=== PATIENT | male | born 1930 | race Caucasian/White ===

== ENCOUNTER 2017-06-01 15:59 | Inpatient (IN) | payer MEDICARE, OTHER ==
[~2017-06-01] VITALS: Ht 175.3 cm; Wt 69.7 kg
--- NOTE | ~2017-06-01 | ENPV ---
Vascular Upper Extremities Veins Procedure Demographics Patient Name BRY MACARIO Date of Study 06/08/2017 Patient Number [id number] Gender Male Date of 1930 Age 87 Visit Number [id number] Height Accession Number [id number] Weight Room Number G6203 BSA BMI Referring Jeraldkenji Negrete Shaheen Rivas MD Physician MD Physician Soy hBat MD Physician Ordering Physician Surveillance Monitor Store Sales Consultant Honorio Markham, T Conclusions Summary Technically limited exam secondary to arm positioning and lines/dressings. No evidence of deep vein thrombosis in the left distal subclavian vein, axillary vein, brachial vein, radial veins and ulnar veins. No evidence of superficial thrombus in the left cephalic vein and the basilic vein in the forearm. The left innominate vein and proximal subclavian vein were not imaged secondary to lines and dressings. The left upper arm basilic vein was not visualized. Cannot rule out deep vein or superficial thrombus in these unimaged veins. Procedure Type of Study: Veins:Upper Extremities Veins, Upper Extremity Left. Indications for Study:Unilateral pain and edema. Additional Indications:Left upper extremity pain/edema Appropriate Use Criteria:9 Patient Status:Routine. Study Location:Imaging Center. Technical Quality:Limited visualization due to patient immobility. Velocities are measured in cm/s ; Diameters are measured in cm Right UE Vein Measurements 2D and Doppler Measurements + + + + +--------+ + !Location !Visualized !Compressibility !Thrombosis !Signal !Reflux ! + + + + +--------+ + !SCV !Yes ! !None !Phasic !No ! + + + + +--------+ + Left UE Vein Measurements 2D and Doppler Measurements + + + + +--------+--------+ !Location !Visualized !Compressibility !Thrombosis !Signal !Reflux ! + + + + +--------+--------+ !IJV !Yes !Yes !None !Phasic !No ! + + + + +--------+--------+ !SCV !Yes ! !None !Phasic !No ! + + + + +--------+--------+ !Innominate !No ! ! ! ! ! + + + + +--------+--------+ !Axillary !Yes !Yes !None !Phasic !No ! + + + + +--------+--------+ !Brachial !Yes !Yes !None !Phasic !No ! + + + + +--------+--------+ !Radial !Yes !Yes !None !Phasic !No ! + + + + +--------+--------+ !Ulnar !Yes !Yes !None !Phasic !No ! + + + + +--------+--------+ !Basilic !Yes !Yes !None !Phasic !No ! + + + + +--------+--------+ !Cephalic !Yes !Yes !None !Phasic !No ! + + + + +--------+--------+ Signature dtt: BOUBACAR GAVIN dtkarina: 06/08/17 1720 Physician Self Edit
--- NOTE | ~2017-06-01 | OR ---
PATIENT'S NAME: BRY MACARIO [facility] AGE: 87 Y [address] ROOM: [place] [address] LOCATION: [facility] ADMIT DATE: 06/01/2017 OR/Procedure Report DISCHARGE DATE: FAMILY PHYSICIAN: PHYSICIAN, UNKNOWN ATTENDING PHYSICIAN: Penelope Vides SURGEON: Penelope Vides MD PRODUCTION TROUBLESHOOTER: Edwardo Summers CST. DATE OF PROCEDURE: 06/04/2017 PREOPERATIVE DIAGNOSIS: Intracerebral and intraventricular hemorrhage. POSTOPERATIVE DIAGNOSIS: Intraventricular and intracerebral hemorrhage. PROCEDURE PERFORMED: Placement of left-sided ventriculostomy for treatment of intraventricular hemorrhage and intracranial pressure. ANESTHESIA: General. ANESTHESIA PROVIDER: Harshad Johnson MD. HISTORY: The patient is an 87-year-old male who suffered a spontaneous intracerebral hemorrhage with extension into the ventricles. On examination, the patient was doing fairly well considering his age and the size of the hemorrhage. We treated him with mannitol a couple of times; however, he was becoming increasingly drowsy and not responding as well to mannitol. I discussed treatment options with the patient's family including placement of a ventriculostomy and they were agreeable to the same. With their consent, the patient was brought down to the operating room for ventriculostomy. PROCEDURE IN DETAIL: In the operating room, the patient was placed in a supine position. Anesthesia was induced. The hair on the left side of his head was clipped. The whole area was prepped and draped in a sterile fashion. The ventriculostomy site was marked out at 12.5 cm behind the left mid pupillary line. Local anesthesia was infiltrated. The incision was opened with a #10 blade and self-retaining retractor was placed. Twist drill was used to drill a hole through the skull. The dura was coagulated. The trocar was used to make a tunnel under the scalp and brought out of the ventriculostomy entry point and the catheter was fed through the trocar and brought out as well. The catheter was then inserted into the brain. CSF was accessed at first try. He was blood tinged CSF as expected given the patient's intraventricular hemorrhage. The catheter was then secured to the scalp. The catheter entry PATIENT'S NAME: BRY MACARIO [facility] AGE: 87 Y [address] ROOM: [place] [id number] LOCATION: [facility] ADMIT DATE: 06/01/2017 OR/Procedure Report DISCHARGE DATE: FAMILY PHYSICIAN: PHYSICIAN, UNKNOWN ATTENDING PHYSICIAN: Penelope Vides point was closed with sutures. A sterile dressing was applied. The patient tolerated the procedure without any apparent intraoperative complications. He was extubated after the procedure and taken back to the recovery room to complete his recovery. I was present during the entire procedure and performed every aspect of it assisted by operating room nurses. The patient remained stable throughout. I expect him to benefit from this procedure. MD VIRI LEWIS/tayl /[id number] d: 06/10/17 1130 t: 06/10/17 1820, OPERATIVE SUMMARY
--- NOTE | ~2017-06-01 | HP ---
PATIENT'S NAME: DALE MACARIO [facility] AGE: 87 Y [address] ROOM: [place] [address] LOCATION: [facility] ADMIT DATE: 06/01/2017 History & Physical DISCHARGE DATE: FAMILY PHYSICIAN: Physician, Unknown ATTENDING PHYSICIAN: Benjamín Kim DATE OF SERVICE: 06/01/2017 PATIENT IDENTIFICATION: Dale Macario is an 87-year-old gentleman referred by Dr. Carrie Perez. REASON FOR REFERRAL: Intracerebral hemorrhage. PRESENTING COMPLAINT: Left-sided weakness. HISTORY OF PRESENT ILLNESS: The history is obtained in part from the patient's referral notes as well as from patient himself. According to the notes, the patient was visiting his at the intermediate when at about 1:30 p.m. he developed an abrupt onset of left leg weakness and was leaning to the left side. A stroke alert was called and the patient was taken to [facility] in [place] ER for evaluation. There is no history of head injury preceding the weakness. The patient was evaluated in the ER and a head CT scan was performed. A right intracerebral and intraventricular hemorrhage was seen. I was therefore consulted to see the patient. PAST MEDICAL HISTORY: Significant for diabetes. The patient has also had previous heart bypass surgery as well as pacemaker placement. 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 Other medical problems include bowel obstruction, hypercholesterolemia, a previous myocardial infarction. Hypertension. SOCIAL HISTORY: The patient's lives in a intermediate. He has a son who is a CPA in [place]. CURRENT MEDICATIONS: Allopurinol, baby aspirin, Cozaar, fish oil, Lantus, Levoxyl, metformin, multivitamins, [place], Prilosec, Tylenol, Unasyn, Zocor. ALLERGIES: PATIENT'S NAME: DALE MACARIO [facility] AGE: 87 Y [address] ROOM: [place] [address] LOCATION: [facility] ADMIT DATE: 06/01/2017 History & Physical DISCHARGE DATE: FAMILY PHYSICIAN: Physician, Unknown ATTENDING PHYSICIAN: Benjamín Kim CODEINE, PERCOCET, PLAVIX. REVIEW OF SYSTEMS: A 10-point review of systems was carried out. The only abnormal problem is as described in the history of present illness. FAMILY HISTORY: There is no family history relevant to present problems. PHYSICAL EXAMINATION: GENERAL: On examination, the patient is an elderly male who looks surprisingly good for 87 years old. He was alert and verbalizing clearly. He was slightly confused to date but knew he was in [place] and said he was in the hospital for an aneurysm in his head. VITAL SIGNS: Blood pressure 135/63, pulse rate 70. NEUROLOGIC: Speech is coherent. Cranial nerves no deficits seen. Motor examination, the patient has normal use of his right side. On the left side, he has no movement in the left arm. He is able to flex his left knee but cannot lift the left leg off the bed. HEAD: His head is atraumatic. EYES AND EARS: No evidence of trauma. SKIN: No skin rashes or skin masses. EXTREMITIES: No cyanosis or clubbing. CHEST: There is a scar on his sternum from previous bypass surgery. There is also a pacemaker on the left infraclavicular area. Left shoulder, there is a scar from osteomyelitis. REVIEW OF IMAGING STUDIES: The patient's head CT scan shows a hemorrhage in the right posterior frontal area. The hemorrhage extends into the right lateral ventricle, and there is slight dilatation of the ventricle. LABORATORY INVESTIGATIONS: His INR is 1.0. Biochemistry: Sodium is 137, potassium is 3.7, creatinine is 0.8, urea is 27. Hemoglobin is 11.3, platelets 130. ASSESSMENT: An 87-year-old gentleman with sudden onset left-sided weakness today. Imaging studies show intracerebral hemorrhage likely as a result of hypertension. MEDICAL DECISION MAKING: The patient is being admitted for observation. There is no indication for immediate surgical intervention, but the patient may need a ventriculostomy if his ventricles continue to dilate. He will likely need rehabilitation for his left-side weakness down the road. PATIENT'S NAME: DALE MACARIO [facility] AGE: 87 Y [address] ROOM: [place] [address] LOCATION: [facility] ADMIT DATE: 06/01/2017 History & Physical DISCHARGE DATE: FAMILY PHYSICIAN: Physician, Unknown ATTENDING PHYSICIAN: Benjamín Kim MD BRITTA LEWISO/modl /[id number] D: [id number] T: [id number] HISTORY & PHYSICAL
--- NOTE | ~2017-06-01 | CON ---
PATIENT'S NAME: BRY MACARIO [facility] AGE: 87 Y [address] ROOM: [place] [address] LOCATION: [facility] ADMIT DATE: 06/01/2017 Consultation DISCHARGE DATE: FAMILY PHYSICIAN: PHYSICIAN, UNKNOWN ATTENDING PHYSICIAN: Penelope Vides Consult for Dr. Johnson and Dr. Vides. This 87-year-old gentleman is referred for rehab evaluation. He is status post intracranial intraventricular hemorrhage status post placement of left- sided ventriculostomy to monitor intraventricular hemorrhage and increased intracranial pressure. He has now had the intracerebral intracranial ventriculostomy monitor discontinued. He is alert and oriented with cuing. Able to answer questions slowly, is monitored in the intensive care unit and can speak and speech is slow but clear and not wet. He has mild left facial droop. Tongue and soft palate are moving symmetrical. Has no volitional movement in the left upper extremity. Has slight volitional movement very minimal in the left lower extremity. Deep tendon reflexes are slightly brisk on the left side. Otherwise 1+ throughout. Slight edema in the left upper extremity with Isotoner glove. He is on ICU on monitor. Vital signs: Blood pressure 114/53, temperature 97.8, pulse 69, and respirations 16. He is 5 feet 9 inches tall and weighs 69.7 kg. He apparently did have as per history spontaneous intracranial hemorrhage. He has also had history of diabetes type 2, status post CABG per history as well as pacemaker placement, osteomyelitis of the left shoulder, bowel obstruction per history, dyslipidemia, [place], and hypertension. He lives in a assisted. He is on the following medications: 1. Trandate. 2. Apresoline. 3. Oxycodone. 4. Levemir. 5. Insulin regular aggressive scale. 6. Flexeril. 7. Sodium chloride 3%. 8. Flomax. 9. Tylenol. 10. NaCl 0.9%. 11. Labetalol. PATIENT'S NAME: BRY MACARIO [facility] AGE: 87 Y [address] ROOM: [place] [address] LOCATION: [facility]ICU ADMIT DATE: 06/01/2017 Consultation DISCHARGE DATE: FAMILY PHYSICIAN: PHYSICIAN, UNKNOWN ATTENDING PHYSICIAN: Obasi,Penelope N 12. Glucagon. 13. Glucose. 14. Dextrose. 15. Zocor. 16. Protonix. 17. Cozaar. 18. Levaquin. 19. KCL. We will continue on PT, OT, and Speech. When stable and if okay with the admitting physician, surgeon, I will take him for intensive rehabilitation for about 2 to 3 weeks aiming to discharge at modified independence and follow on him on an outpatient basis. All the above was explained to him. He verbalized understanding and agreement. Thank you for this referral. MD LESLIE STONER/modl /[id number] d: 06/12/17 2317 t: 06/13/17 0810, CONSULTATION REPORT
--- NOTE | ~2017-06-01 | ER ---
PATIENT'S NAME: BRY MACARIO [facility] AGE: 87 Y [address] ROOM: [place] [address] LOCATION: [facility] ADMIT DATE: 06/01/2017 ER/Outpatient Report DISCHARGE DATE: FAMILY PHYSICIAN: PHYSICIAN, UNKNOWN ATTENDING PHYSICIAN: Penelope Vides CHIEF COMPLAINT: Intracranial hemorrhage. HISTORY OF PRESENT ILLNESS: Mr. Macario presents by air ambulance from [place] for evaluation. He was accepted by Dr. Vides to the ER for evaluation. I saw him as completion of the EMTALA requirements. I note that the patient has what appears to be a spontaneous bleed earlier today. He vomited a few times, particularly most recent 15 minutes prior to arrival in the air ambulance. He has had several doses of Zofran. He denies any particular pain at this time other than some nausea. He was given hydralazine and labetalol x2 prior to arrival to help control blood pressures. Blood pressures en route have been in the 100-110s systolically per air methods transfer. The exact time of onset is unclear, but he was last known well at 1330 hours today. He was not doing anything. He felt weak on his left side and was having difficulty walking and that is what prompted him to come in. He denies any other issues. PAST MEDICAL HISTORY: Notable for diabetes mellitus, anemia, dizziness, history of [place], unstable angina, bowel obstruction, congestive heart failure, hypercholesterolemia, coronary artery disease, hypertension, peptic ulcer disease, thyroid disease. PAST SURGICAL HISTORY: Abdominal aneurysm repair, angioplasty likely cardiac, back surgery, cardiac catheterization, colonoscopy, CABG, pacemaker placement, and hip prosthesis. MEDICATIONS: 1. Allopurinol. 2. Baby aspirin. 3. Cozaar. 4. Fish oil. 5. Lantus. 6. Levothyroxine. 7. Metformin. 8. Multivitamins. 9. [place]. 10. Prilosec. PATIENT'S NAME: BRY MACARIO [facility] AGE: 87 Y [address] ROOM: [place] [address] LOCATION: [facility] ADMIT DATE: 06/01/2017 ER/Outpatient Report DISCHARGE DATE: FAMILY PHYSICIAN: PHYSICIAN, UNKNOWN ATTENDING PHYSICIAN: Penelope Vides 11. Tylenol. 12. Unisom. 13. Zocor. ALLERGIES: CODEINE, PERCOCET, PLAVIX. SOCIAL HISTORY: The patient denies active tobacco, alcohol, or drug use. PHYSICAL EXAMINATION: VITAL SIGNS: Blood pressure 129/60, pulse 70, respiratory rate is 20, temperature 97.0, and SpO2 is 96% on room air. GENERAL: Age-appropriate male. No obvious pain or distress, sitting semi- recumbent on the exam table. NEUROLOGIC: The patient is awake and alert. GCS is 15. He has left-sided lester-neglect. He is able to activate his vial gauger on the left side, minimal activation of the feet. Decreased sensation on the left side. The eyes stop at midline with left gaze deviation. Right side is unremarkable for focal deficits. The patient without speech impediment. No other acute findings grossly. HEENT: Normocephalic, atraumatic. Eyes are PERRL. Oropharynx is clear. NECK: Supple. Trachea is midline. CHEST/HEART: Regular rate and rhythm with no obvious murmurs. LUNGS: Grossly clear to auscultation bilaterally. No rhonchi, wheezes, or rales. ABDOMEN: Soft, nontender, and nondistended. BACK: Normal to inspection and palpation. EXTREMITIES: Warm and well perfused. No obvious abnormalities. SKIN: Appears to be grossly intact. LABORATORY DATA AND X-RAYS: Labs from prior to arrival were reviewed. Hemoglobin and INR are within appropriate limits. Troponin is not elevated. Electrolytes without appreciable abnormality. Creatinine is 0.8. GFR is greater than 60. Head CT reviewed with right-sided intraparenchymal and intraventricular hemorrhage. IMPRESSION: Acute and spontaneous intracranial hemorrhage. EMERGENCY DEPARTMENT COURSE: The patient was seen and evaluated. Dr. Vides in Neurosurgery evaluated the patient as well. I believe he is appropriate for admission to the hospital. PATIENT'S NAME: BRY MACARIO [facility] AGE: 87 Y [address] ROOM: [address] [place] [id number] LOCATION: [facility] ADMIT DATE: 06/01/2017 ER/Outpatient Report DISCHARGE DATE: FAMILY PHYSICIAN: PHYSICIAN, UNKNOWN ATTENDING PHYSICIAN: Penelope Vides He remained, otherwise, stable and did not receive any further interventions from the emergency department. He will be admitted under Dr. Vides's service for observation for further evaluation and treatment and re-evaluation of blood pressure control. MD WASHINGTON GANDHI/lachelle /[id number] d: 06/01/17 2307 t: 06/18/17 1214, OUTPATIENT REPORT
--- NOTE | ~2017-06-01 | CON ---
PATIENT'S NAME: BRY MACARIO [facility] AGE: 87 Y [address] ROOM: [place] [address] LOCATION: [facility]ICU ADMIT DATE: 06/01/2017 Consultation DISCHARGE DATE: FAMILY PHYSICIAN: PHYSICIAN, UNKNOWN ATTENDING PHYSICIAN: Penelope Vides REASON FOR CONSULTATION: Medical management. HISTORY OF PRESENT ILLNESS: An 87-year-old gentleman who was admitted in early June with an intracerebral hemorrhage to the [facility]. He has a past medical history of insulin-dependent diabetes mellitus, hypertension, and coronary artery disease as well as pacemaker placement secondary to sick sinus syndrome. He did need ventriculostomy done during the hospitalization, which is removed now. Recovery has rather been slow. On my encounter today, he is a little drowsy. On further inquiry, he denied any headache, any dizziness, or any trouble with the eyes today, but he did complain of some shortness of breath and some cough and sputum production for the past 2 days now. He cannot tell me for sure if he had any fever or chills. He denied any abdominal pain, any burning on urination, or any extremity swelling. He does complain that he is feeling weak all over. REVIEW OF SYSTEMS: All other systems reviewed and were negative except what is mentioned in the HPI. PAST MEDICAL HISTORY: Includes insulin-dependent diabetes mellitus; anemia, most likely secondary to anemia of chronic disease; hypertension; hypothyroidism; coronary artery disease, status post bypass; and sick sinus syndrome, status post pacemaker placement. CURRENT MEDICATIONS: Include: 1. Zosyn. 2. Vancomycin. 3. Indomethacin. 4. Insulin detemir. 5. Trolamine salicylate. 6. Morphine sulfate. 7. Bisacodyl. 8. Oxycodone. 9. Regular insulin. 10. Fludrocortisone. 11. Tamsulosin. PATIENT'S NAME: BRY MACARIO [facility] AGE: 87 Y [address] ROOM: [place] [address] LOCATION: [facility] ADMIT DATE: 06/01/2017 Consultation DISCHARGE DATE: FAMILY PHYSICIAN: PHYSICIAN, UNKNOWN ATTENDING PHYSICIAN: Penelope Vides 12. Acetaminophen. 13. Ondansetron. 14. Sodium chloride. 15. Levothyroxine. 16. Simvastatin. 17. Pantoprazole. 18. Mannitol, which was discontinued yesterday. ALLERGIES: THE PATIENT IS ALLERGIC TO PERCOCET WHICH CAUSES CONFUSION AND PLAVIX. SOCIAL HISTORY: The patient lives with in the [facility] facility. No ongoing toxic habits reported. FAMILY HISTORY: Reviewed with the daughter, and there is no significant family history of premature coronary artery disease. PHYSICAL EXAMINATION: VITAL SIGNS: Today show blood pressure 110/52, respiratory rate of 20, pulse 71, and temperature 97.7. GENERAL: In no acute distress. Alert and oriented x1. HEENT: Head is atraumatic, has ventriculostomy incision saurav without any purulence. Oropharynx: Moist mucous membranes. CARDIOVASCULAR: S1 and S2. No murmurs, gallops, or rubs. LUNGS: Left base, scattered crackles. No expiratory wheezes. Equal air entry. ABDOMEN: Soft, nontender, and nondistended. Bowel sounds present. EXTREMITIES: No clubbing, cyanosis, or edema. PSYCHIATRIC: Normal affect, mood, and speech. NEUROLOGIC: Left-sided neglect. Left upper and left lower extremity power 2/5. LABORATORY DATA: Lab work from today was reviewed and was impressive for a hemoglobin of 7.5. Chest x-ray was obtained yesterday which did show left-sided hazy opacity. ASSESSMENT AND PLAN: 1. Hospital-acquired pneumonia. 2. Insulin-dependent diabetes mellitus. 3. Anemia. Most likely secondary to anemia of chronic disease, but needs to be investigated. 4. Intracerebral hemorrhage, status post ventriculostomy. 5. Hypertension. PATIENT'S NAME: BRY MACARIO [facility] AGE: 87 Y [address] ROOM: [address] [address] LOCATION: [facility] ADMIT DATE: 06/01/2017 Consultation DISCHARGE DATE: FAMILY PHYSICIAN: PHYSICIAN, UNKNOWN ATTENDING PHYSICIAN: Penelope Vides 6. Hypothyroidism. 7. Coronary artery disease. 8. Sick sinus syndrome, status post pacemaker. 9. History of osteomyelitis of the left shoulder, status post surgery. At this point, we would recommend continuing the vancomycin and Zosyn. We will also advise obtaining sputum cultures. Urine streptococcal and Legionella antigen. We will deescalate antibiotics based on the procalcitonin. He did have a couple of hypoglycemic numbers in the hospitalization, and we are going to change insulin detemir to 10 units b.i.d. and change the sliding scale insulin to Humalog or NovoLog. Lactobacillus for Clostridium difficile prophylaxis. Hypertension seems to be adequately controlled. Chemical prophylaxis needs to be decided by Neurosurgery. Right now, SCDs. The plan is the patient will go to [facility] to the swing bed where his is at. Thank you for involving us in taking care of this patient. MD SANTA PÉREZ/lachelle /[id number] d: 06/19/17 1855 t: 06/20/17 0833, CONSULTATION REPORT
--- NOTE | ~2017-06-01 | CON ---
PATIENT'S NAME: BRY MACARIO [facility] AGE: 87 Y [address] ROOM: [place] [address] LOCATION: GICU ADMIT DATE: 06/01/2017 Consultation DISCHARGE DATE: FAMILY PHYSICIAN: PHYSICIAN, UNKNOWN ATTENDING PHYSICIAN: Penelope Vides DATE OF CONSULTATION: 06/13/2017 REASON FOR CONSULT: Abdominal pain with history of aortic abdominal aneurysm. HISTORY OF PRESENTING ILLNESS: This is an 87-year-old, male, currently admitted to [facility]. On 06/01/2017, the patient experienced abrupt left leg weakness and was found to have right intracerebral intraventricular hemorrhage in [place]. He was transferred to [facility] under the care of Dr. Vides. Dr. Vides performed a left-sided ventriculostomy on 06/04/2017. This has been discontinued and the patient has a consultation for rehabilitation. Today, the patient began complaining of left upper quadrant abdominal pain. He reports back pain as well. The patient seems to understand the interview but is a poor historian. Stat CTA of abdomen and pelvis was completed this morning. The patient with a history of abdominal aortic aneurysm 4.2 x 3.8 cm. Significant history of tobacco abuse. He did quit in 1969. PAST MEDICAL HISTORY: 1. Diabetes mellitus. 2. Anemia. 3. Dizziness. 4. History of myocardial infarction. 5. Unstable angina. 6. Bowel obstruction. 7. Congestive heart failure. 8. Hypercholesterolemia. 9. Coronary artery disease. 10. Hypertension. 11. Peptic ulcer disease. 12. Thyroid disease. 13. Osteomyelitis of left shoulder. PAST SURGICAL HISTORY: 1. Heart catheterization with 4 stents. 2. Four-vessel coronary artery bypass grafting in 2003. 3. Back surgery x2, fusion. 4. Pacemaker placement. 5. Colonoscopy. PATIENT'S NAME: BRY MACARIO [facility] AGE: 87 Y [address] ROOM: [place] [address] LOCATION: [facility] ADMIT DATE: 06/01/2017 Consultation DISCHARGE DATE: FAMILY PHYSICIAN: , UNKNOWN ATTENDING PHYSICIAN: Penelope Vides 6. Left total hip arthroplasty. 7. Right shoulder repair. 8. Bilateral cataracts. FAMILY HISTORY: A brother from colon cancer. A twin brother of Alzheimer's. Mother at age 65 of an aneurysm and father of a heart attack at age 89. SOCIAL HISTORY: The patient lives in a halfway. He is a former 2 pack per day smoker x30 years. He quit in 1969. Denies any alcohol or illicit drug use. CURRENT MEDICATIONS: See medication reconciliation. ALLERGIES: CODEINE, PERCOCET, AND PLAVIX. REVIEW OF SYSTEMS: All systems have been reviewed and negative aside from pertinent positives addressed in the history of presenting illness. PHYSICAL EXAMINATION: VITAL SIGNS: Temperature 98.3, heart rate 70, respiratory rate 16, blood pressure 147/67, oxygen saturations 95%. GENERAL: The patient is alert to person. He is disoriented to time and place. He is in no acute distress. He has clear, slow speech. SKIN: Warm, pink, and dry. HEENT: Head: Normocephalic. Ears: Without drainage. Eyes: Sclerae white. Conjunctivae pink. Nose: Without drainage. Throat: Oral mucosa pink and moist. No exudate or erythema. NECK: Without adenopathy. No evidence of JVD. No carotid bruit. RESPIRATORY: Clear to auscultation bilaterally, even and nonlabored. CARDIOVASCULAR: Regular rate and rhythm. No murmur or extra sounds. GASTROINTESTINAL: Normal bowel sounds, active x4 quadrants. Soft, nontender. No organomegaly. No pulsatile mass. EXTREMITIES: No edema. No cyanosis. 1+ pedal pulses bilaterally. NEUROLOGIC: Left upper extremity is flaccid. Left lower extremity is weak. DIAGNOSTIC DATA: Hematology: White blood cell count 6.4, hemoglobin 9.6, hematocrit 28.4, platelets 179. Chemistry: Sodium 133, potassium 3.5, chloride 99, CO2 27, BUN 12, creatinine 0.4, glucose 70. PATIENT'S NAME: BRY MACARIO [facility] AGE: 87 Y [address] ROOM: [place] [address] LOCATION: [facility] ADMIT DATE: 06/01/2017 Consultation DISCHARGE DATE: FAMILY PHYSICIAN: PHYSICIAN, UNKNOWN ATTENDING PHYSICIAN: Penelope Vides IMPRESSION AND PLAN: Abdominal aortic aneurysm. The patient's CT from this morning shows no leak or inflammation suspicious for inflammatory aneurysm. 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 The patient denied abdominal pain during my interview, however, previous abdominal pain likely not related to aneurysm as well. Abdominal aortic aneurysm appears stable and less than 5 cm. No indication for intervention at this time. Continue to monitor yearly. Thank you for your consultation and for allowing us to participate in the care of this patient. RADHA ZEPEDA APRN FOR BOUBACAR GAVIN MD TO/lachelle /[id number] d: 06/13/171823 t: 07/01/171811, CONSULTATION REPORT
--- NOTE | ~2017-06-01 | CON ---
PATIENT'S NAME: RENALDO [facility] AGE: 87 Y [address] ROOM: [address] [address] LOCATION: [facility] ADMIT DATE: 06/01/2017 Consultation DISCHARGE DATE: FAMILY PHYSICIAN: PHYSICIAN, UNKNOWN ATTENDING PHYSICIAN: Penelope Vides DATE OF CONSULTATION: 06/04/2017 REASON FOR REFERRAL: Neurointensive care management. CHIEF COMPLAINT: Intracerebral hemorrhage. HISTORY OF PRESENT ILLNESS: Seeing this patient postop after placement of a ventriculostomy and ICP monitor. So history is obtained from family and prior notes. Apparently this is an 87-year-old male, who on about 06/01 was visiting his at a retirement when he developed abrupt onset of left-sided weakness. He was sent to ER in [place] and was found to have a right intracerebral with intraventricular hemorrhage. He was sent to [facility] for further management. He has been apparently managed in the ICU for the last couple days and has gotten a little more drowsy, less responsive, but has been responding to doses of mannitol. A repeat scan showed no further enlargement of the hemorrhage but there is evidence of some hydrocephalus and then EVD was placed to help manage pressure. PAST MEDICAL HISTORY: Past medical history of the patient is significant for diabetes, hypothyroid, coronary artery disease, peptic ulcer disease, hypercholesterolemia, history of congestive heart failure, sick sinus syndrome with placement of a pacemaker, myocardial infarction, anemia. SOCIAL HISTORY: Lives in a retirement. MEDICATIONS: Current medications are: 1. Allopurinol. 2. Aspirin. 3. Losartan. 4. Lantus. 5. Levothyroxine. 6. Metformin. 7. Multiple vitamins. PATIENT'S NAME: RENALDO [facility] AGE: 87 Y [address] ROOM: [address] [address] LOCATION: [facility] ADMIT DATE: 06/01/2017 Consultation DISCHARGE DATE: FAMILY PHYSICIAN: PHYSICIAN, UNKNOWN ATTENDING PHYSICIAN: Penelope Vides 8. [place]. 9. Prilosec. 10. Simvastatin. ALLERGIES: HE IS ALLERGIC TO CODEINE, PERCOCET, AND PLAVIX. REVIEW OF SYSTEMS: Unobtainable at this time. PHYSICAL EXAMINATION: VITAL SIGNS: Heart rate 69, blood pressure is 150/69, respirations are 16, pulse ox is 100%. GENERAL: He is 30 degrees in bed, sedated, not responsive. HEENT: Pupils are equal, round, reactive to light. The dressings are clean, dry, and intact with a left placed external ventricular drain. Trachea is midline. No JVD. CHEST: Clear to auscultation bilaterally. HEART: Regular rate and rhythm. ABDOMEN: Soft, nontender, positive bowel sounds. EXTREMITIES: There is no edema. 2+ pulses present. NEUROLOGIC: His moves, spontaneous movement on the right side. Full neurological exam is unobtainable at this time due to the medications. LABORATORY DATA: Sodium is 130, potassium 3.2, chloride 97, glucose is 130. Hemoglobin is 11, hematocrit 32, platelets 146. ASSESSMENT: 1. Intracerebral hemorrhage. Probable hypertensive. Could not rule out an AV malformation. The hemorrhage also extended into the intraventricule and an EVD was placed to monitor the ICP and relive CSF and avoid hydrocephalus. We will leave his drain open at about 15 cm water to drain blood. Keep his ICP less than 20 which should not be an issue and maintain a CPP greater than 60. 2. Hypertension. Keep his blood pressure less than 150 with labetalol, hydralazine p.r.n. 3. Diabetes. He is n.p.o. I will add sliding scale insulin at this time. 4. Coronary artery disease, stable. 5. Congestive heart failure. not in current exacerbation, it looks stable. 6. Hypercholesterolemia. We will continue with statin. 7. Hypothyroidism. Continue his levothyroxine. 8. Hypokalemia. We will place some potassium and recheck in the morning. 9. Hyponatremia. Just monitor at this point with some IV fluids. 10. Reflux and peptic ulcer disease, on PPI. PATIENT'S NAME: BRY MACARIO [facility] AGE: 87 Y [address] ROOM: [address] [address] LOCATION: [facility] ADMIT DATE: 06/01/2017 Consultation DISCHARGE DATE: FAMILY PHYSICIAN: PHYSICIAN, UNKNOWN ATTENDING PHYSICIAN: Penelope Vides 11. Anemia, chronic. Monitor at this point. PLAN: As stated above. We will monitor him overnight, recover from his surgery and work to advance with speech, PT/OT, and replace electrolytes in the morning. DISPOSITION: ICU. PROPHYLAXIS: SCD and LUIS and PPI. No anticoagulants at this time. IRINEO WASHINGTON MD JJP/modl /[id number] d: 06/05/17 1250 t: 06/18/17 1605, CONSULTATION REPORT
--- NOTE | ~2017-06-01 | DS ---
PATIENT'S NAME: BRY MACARIO [facility] AGE: 87 Y [address] ROOM: [place] [id number] LOCATION: [facility] ADMIT DATE: 06/01/2017 Discharge Summary DISCHARGE DATE: 06/25/2017 FAMILY PHYSICIAN: Mikel Nieves MD ATTENDING PHYSICIAN: Jose De Jesus Ludwig Transferred to [facility], June 25, 2017. REASON FOR ADMISSION: The patient sustained an intracerebral hemorrhage with extension into the ventricles. The hemorrhage was in the right hemisphere causing him left-sided weakness. PHYSICAL EXAMINATION: The patient was alert and verbalizing clearly. He was only slightly confused, but knew he was in [place] and thought he had a brain aneurysm in his head. TREATMENT RENDERED: The patient was admitted as an inpatient to the hospital. He was treated for blood pressure control. During his stay in the hospital, it was necessary to place a ventriculostomy for a period of time to reduce the pressure in his brain. He was gradually weaned off the ventriculostomy. He also had some abdominal pain and back pain and he was evaluated for a known abdominal aneurysm. It was felt that treatment was not necessary for the aneurysm. The patient continued to improve and by the 25 of June, was well enough to be transferred to the [facility] in [place]. At this time, the patient was awake and following commands, but he was still very unsteady on his feet. The patient was transferred on June 25, 2017. The arrangements have been made for followup, but I will be happy to see the patient again if it is felt to be necessary at any point in the future. JOSE DE JESUS LUDWIG MD CNO/modl /[id number] CC: Mikel Nieves MD d: 07/06/17 0040 t: 07/08/17 2206, DISCHARGE SUMMARY
[2017-06-01] MEDS ORDERED: ZYLOPRIM300 MG PO (17:57)
[2017-06-01] MEDS ORDERED: ASPIRIN (CHILDR81 MG PO (17:57)
[2017-06-01] MEDS ORDERED: COZAAR50 MG PO (17:58)
[2017-06-01] MEDS ORDERED: FISH OIL 1,0001 EAC1 PO (17:58)
[2017-06-01] MEDS ORDERED: LEVOXYL100 MCG PO (17:59)
[2017-06-01] MEDS ORDERED: LANTUS (IN100 UNIT/M SUB-Q ×2 (17:59)
[2017-06-01] MEDS ORDERED: GLUCOPHAGE XR500 M1 PO (18:00)
[2017-06-01] MEDS ORDERED: THERA-VITE W/ B1 TAB PO (18:00)
[2017-06-01] MEDS ORDERED: NORCO 5-325 TA1 EACH PO (18:01)
[2017-06-01] MEDS ORDERED: TYLENOL EXTRA500 MG PO (18:02)
[2017-06-01] MEDS ORDERED: PRILOSEC20 MG PO (18:02)
[2017-06-01] MEDS ORDERED: ZOCOR40 MG PO (18:02)
[2017-06-01] MEDS ORDERED: UNISOM 25 MG25 MG PO (18:02)
--- NOTE | 2017-06-02 05:36 | NUR ---
Significant Event: PATIENT A/O X3. fOLLOWS COMMANDS TO RIGHT EXTREMETIES. L) SIDED NEGLECT. LUE WITHDRAWLS TO PAIN, N/T NOTED. LLE NOT RESPONSIVE TO PAINFUL STIMULI, SENSATION ABSENT. LS CLEAR ET DIMINSHED, SPO2 >90% ON RA. IMPLANTED PACEMAKER DOES NOT APPEAR TO BE FIRING. PATIENT AND FAMILY UNSURE OF TYPE/MAKE, WILL PROVIDE INFO TODAY. PATIENT ET PATIENTS POA REQUEST DNR STATUS, ON CHART FOR MD SIGNATURE. INCONTINENT OF LOOSE STOOLS X4. DOES NOT ATTEMPT TO SELF TRANSFER, BED ALARMS ON AND FUNCTIONING. Follow up: MONITOR FOR DECREASED NEURO STATUS
--- NOTE | 2017-06-02 17:44 | NUR ---
SIGNIFICANT EVENT: PATIENT ALERT, ORIENTED X3. OPENS EYES SPON AND TO VOICE. PUPILS EQUAL AND REACTIVE. TRACKS WITH EYES. DENIES BLURRED VISION. SLIGHT L) MOUTH FACIAL ASYMMETRY. PATIENT MOVES R) UPPER AND LOWER EXTREMITIES SPONTANEOUSLY AND TO COMMANDS, EQUAL STRENGTH. PATIENT WITHDRAWS TO PAIN IN L) UPPER AND L) LOWER EXTREMTIIES. COMPLAINS OF NUMBNESS, TINGLING AND PAIN AT TIMES IN L) EXTREMITIES. PATIENT DOES NOT FOLLOW COMMANDS IN L) UPPER EXTREMITIES, ALTERED SENSATION ALSO PRESENT. PATIENT FOLLOWS SIMPLE COMMANDS IN L) LOWER EXTREMITY INCLUDING BENDING KNEE, WIGGLING TOES INCONSISTENTLY. PATIENT HAS BEEN IN PACED RHYTHM, HR 70S. PULSES PALPABLE THROUGHOUT. SOME EDEMA PRESENT IN L) EXTREMITIES. AFEBRILE. PATIENT ON ROOM AIR, SATS MID TO UPPER 90S. BOWEL SOUNDS PRESENT, 1 BM TODAY. DECREASED APETITE R/T EMISIS, TOTAL OF 3 EMISIS TODAY, DR LOCO NOTIFIED, UNDIGESTED FOOD PARTS. ALL PO MEDS HELD, R/T PATIENT VOMITING, MD AWARE. NO CHANGES IN NEURO STATUS THROUGHOUT THE SHIFT. PATIENT APPROPRIATELY CONVERSATIONAL. VOIDS PER URINAL, ADEQUATE OUTPUT. NO NEW SKIN ISSUES NOTED. BATH COMPLETED. REPOSITION EVERY 2 HOURS. 2 PIV, R) HAND SALINE LOCKED, L) PIV INFUSING NS AT 75ML/HR, GOOD BLOOD RETURN, NO COMPLICATIONS. FOLLOW UP: CONTINUE TO MONITOR.
--- NOTE | 2017-06-03 05:35 | NUR ---
Significant Event: Patient alert, oriented to person, time, and inconsistant with place. Re-orients easily. NIHSS 9. L)neglect present. Withdraws in LUE and LLE. Follows commands in RUE and RLE. Pupils equal and reactive. SR, BP stable, occasionally hypertensive, no prn treatmented needed this shift. Room air, lung sounds clear and diminished. Bowel sounds hypoactive, emesis x1 this shift. No bm this shift. Voids per urinal occasionally, also incontinent. No new or worsening skin issues. Afebrile. PIV x1 intact with NS infusing at 75ml/hr. Follow up: Status change?
--- NOTE | 2017-06-03 09:50 | NUR ---
PER ICU ROUNDS, MD MAY ORDER DOBHOFF. IF FEEDING TUBE PLACED, REC OSMOLITE 1.5 TO RUN AT GOAL OF 50 ML/HR = 1800 KCALS, 75 GM PROTEIN, 914 ML FREE H20. RECS WRITTEN IN CHART AND RELAYED TO RN. WILL F/U IN 1-2 DAYS.
--- NOTE | 2017-06-03 13:33 | NUR ---
Talked with patient and daughter at bedside. Lives in [place], is at [facility] for a skilled stay and he would like to go there on discharge for skilled stay to be with her. Called and talked with social science teacher at [facility] and faxed referral information, they anticipate being able to accept him, said the event occurred while he was there visiting his .
--- NOTE | 2017-06-03 16:23 | NUR ---
SIGNIFICANT EVENT: PATIENT ALERT, CONSISTENTLY ORIENTED TO SELF TIMES DISORIENTED TO TIME AND PLACE, CURRENTLY ORIENTED X3. MAKES SOME CONFUSED COMMENTS. PATIENT OPENS EYES SPONT AND TO VOICE. PUPILS EQUAL AND REACTIVE. PATIENT'S SPEECH IS SLOW. PATIENT APPEARS TO BE EXPERIENCING VISUAL HALLUCINATIONS; POINTS TO CELIENG AND STATES HE SEES BUG, RN AND FAMILY DO NOT VISUALIZE ANY BUGS. PATIENT COMPLAINS OF NECK STIFFNESS, RELIEF NOTED FROM ICE TO NECH AND PAIN MEDICATION. PATIENT MOVES R) UPPER AND LOWER EXTREMITIES SPONT AND TO COMMANDS, EQUAL STRENGTH. SIGNIFICANT L) SIDED NEGLECT. WITHDRAWS TO PAIN IN L) UPPER AND L) LOWER EXTREMITIES. INCONSISTENTLY FOLLOS SOME COMMANDS IN L) LOWER EXTREMITY, SOME SPONT MOVEMENTS NOTED. NHISS 10. CT SCAN OF HEAD COMPLETED THIS SHIFT. SLIGHT L) FACIAL DROOPING NOTED, NO DIFFICULTY SWALLOWING. PATIENT HAS BEEN IN PACED SINUS RHYTHM, HR 70S, PULSES PALPABLE THROUGHOUT. EDEMA PRESENT ON l) SIDLE. AFEBRILE. BP STABLE, SBP 140-160S, MAP>65. PATIENT ON ROOM AIR, SATS MID 90S. BOWEL SOUNDS PRESENT, NO BM. NO EMISIS TODAY. ZOFRAN GIVEN X1. ADEQUATE URINE OUTPUT X1 INCONT VOID. BATH COMPLETED TODAY, NO NEW SKIN ISSUES, REPOSITIONED EVERY 2 HOURS. NS INFUSING THROUGH R) HAND, NO COMPLICATIONS. FOOLOW UP: CONT TO MONITOR
--- NOTE | 2017-06-04 05:43 | NUR ---
Significant Event: PATIENT DROWSY THIS SHIFT. AROUSES TO REPEATED STIM. FOLLOWS COMMANDS IN RIGHT UPPER EXTREMITY WITH GOOD STRENGTH. SPONTANEOUS MOVEMENT OF BILATERAL LOWER EXTREMITIES. ORIENTED TO PERSON ONLY. MANNITOL X1. AFEBRILE. CONTINUES ON ROOM AIR. BOYCE PLACED THIS SHIFT. NO BM. NPO INCLUDING MEDS. NEUROCHECKS Q2 HOURS. PIV X1 Follow up:
[2017-06-04 11:17] LABS: BASOPHIL % 0.1 %; EOSINOPHIL % 0.2 %; HEMATOCRIT 32.8 % (33.0-50.0); HEMOGLOBIN 11.1 g/dL (11.0-16.0); IMMATURE GRANULOCYTE # 0.1 K/uL (0.0-0.3); IMMATURE GRANULOCYTE % 0.6 %; LYMPHOCYTE % 11.8 %; MCH 28.5 pg (27.0-34.0); MCHC 33.8 gm/dL (32.0-36.5); MCV 84.1 fl (83.0-98.0); MONOCYTE # 0.8 K/uL (0.0-1.0); MONOCYTE % 9.5 %; MPV 10.6 fl (9.4-12.4); NEUTROPHIL # (ANC) 6.3 K/uL (1.4-9.0); NEUTROPHIL % 77.8 %; NRBC % 0 /100WBC (0-0.00); PLATELET COUNT 146 K/uL (150-450); RDW-CV 14.7 % (11.9-14.6); WBC 8.1 K/uL (4.0-11.0)
[2017-06-04 11:27] LABS: INR - (THERAPEUTIC) 1.07 (0.92-1.07); PROTIME 11.2 SECONDS (9.8-11.4); PTT 24 SECONDS (25-32)
[2017-06-04 11:34] LABS: ALBUMIN 2.6 gm/dL (3.5-5.0); ALK PHOS 46 IU/L (33-138); ALT 23 IU/L (12-78); ANION GAP 12.2 (10.0-19.0); AST 19 IU/L (10-40); BLOOD UREA NITROGEN 14 mg/dL (6-24); CALCIUM 7.9 mg/dL (8.5-10.5); CHLORIDE 97 mMol/L (96-110); CO2 24 mMol/L (22-32); CREATININE 0.6 mg/dL (0.6-1.3); ESTIMATED GFR (MDRD EQUATION) > 60; POTASSIUM 3.2 mMol/L (3.7-5.1); SODIUM 130 mMol/L (135-145); TOTAL BILIRUBIN 0.8 mg/dL (0.0-1.5); TOTAL PROTEIN 5.6 g/dL (6.0-8.4)
--- NOTE | 2017-06-04 16:57 | NUR ---
Significant Event: Patinet is A/Ox2, disoriented to time. Follows commands. Equal bilateral moderate hand grasp. Wiggles right toes on command. Does not wiggle left toes on command.Withdraws in all extremities. HR 70's.SBP 116-150's. Max temp 99. RA with SPO2 mid 90's. Lungs asclutated clear-clear/diminished. Hypoactive bowel sounds. NPO. NO BM. Follow up: to or today for ICP/Ventric.
[2017-06-05 05:23] LABS: BASOPHIL % 0.1 %; EOSINOPHIL % 0.3 %; HEMATOCRIT 34.4 % (33.0-50.0); HEMOGLOBIN 11.4 g/dL (11.0-16.0); IMMATURE GRANULOCYTE # 0.1 K/uL (0.0-0.3); IMMATURE GRANULOCYTE % 0.6 %; LYMPHOCYTE # 0.8 K/uL (0.8-4.0); MCH 28.4 pg (27.0-34.0); MCHC 33.1 gm/dL (32.0-36.5); MCV 85.8 fl (83.0-98.0); MONOCYTE # 1.2 K/uL (0.0-1.0); MONOCYTE % 11.5 %; MPV 11.7 fl (9.4-12.4); NEUTROPHIL # (ANC) 8.3 K/uL (1.4-9.0); NEUTROPHIL % 79.5 %; NRBC % 0 /100WBC (0-0.00); PLATELET COUNT 138 K/uL (150-450); RBC 4.01 M/uL (3.50-5.50); RDW-CV 14.7 % (11.9-14.6); WBC 10.5 K/uL (4.0-11.0)
[2017-06-05 05:41] LABS: ALBUMIN 2.6 gm/dL (3.5-5.0); ALK PHOS 44 IU/L (33-138); ALT 23 IU/L (12-78); ANION GAP 14.2 (10.0-19.0); AST 29 IU/L (10-40); BLOOD UREA NITROGEN 14 mg/dL (6-24); CALCIUM 7.7 mg/dL (8.5-10.5); CHLORIDE 101 mMol/L (96-110); CO2 22 mMol/L (22-32); CREATININE 0.6 mg/dL (0.6-1.3); ESTIMATED GFR (MDRD EQUATION) > 60; POTASSIUM 3.2 mMol/L (3.7-5.1); SODIUM 134 mMol/L (135-145); TOTAL BILIRUBIN 0.7 mg/dL (0.0-1.5); TOTAL PROTEIN 5.6 g/dL (6.0-8.4)
--- NOTE | 2017-06-05 07:05 | NUR ---
Significant Event: CONTINUES NEUROINTENSIVE. ICP/VENTRIC OPEN AT ALL TIMES, DRAINING 5-15ML/HR. SBP GOAL <150. PRN HYDRALAZINE GIVEN X1. LEIDA PUSH X1 FOR CPP <60. TITRATED TO ROOM AIR. NPO. NO BM. BOYCE WITH ADEQUATE UOP. PIV X2. NS WITH KCL FOR TOTAL FLUIDS 120ML/HR. Follow up:
--- NOTE | 2017-06-05 17:38 | NUR ---
Significant Event: : Dialysis line placed at [address] Metcalf and CRRT started at 1518. Goal 100 ml/hr off. CARDIO: Dopamine gtt at 3 mcg/kg/min, Dobutamine at 2.5 mcg/kg/min to keep MAP >65.
--- NOTE | 2017-06-06 05:12 | NUR ---
Significant Event: Patient taken for CT scan at beginning of shift for decreased LOC, showed no changes per Dr. Vides. Patient now drowsy, oriented to person. Follows commands in RUE and RLE. Hydralazine given x1, labetolol given x1 for SBP >150. ICP <15 throughout night. Ventric open continuously with blood-tinged CSF draining 0-5ml/hr. Room air. Brown intact, adequate UOP. No new or worsening skin issues. Afebrile. PIVx2 intact. Follow up: Continue.
[2017-06-06 05:36] LABS: BASOPHIL % 0.1 %; HEMATOCRIT 36.4 % (33.0-50.0); HEMOGLOBIN 12.3 g/dL (11.0-16.0); IMMATURE GRANULOCYTE # 0.1 K/uL (0.0-0.3); IMMATURE GRANULOCYTE % 0.8 %; LYMPHOCYTE # 0.7 K/uL (0.8-4.0); LYMPHOCYTE % 5.8 %; MCH 28.7 pg (27.0-34.0); MCHC 33.8 gm/dL (32.0-36.5); MONOCYTE # 0.7 K/uL (0.0-1.0); MONOCYTE % 5.9 %; MPV 11.3 fl (9.4-12.4); NEUTROPHIL # (ANC) 10.8 K/uL (1.4-9.0); NEUTROPHIL % 87.4 %; NRBC % 0 /100WBC (0-0.00); RBC 4.28 M/uL (3.50-5.50); RDW-CV 15.2 % (11.9-14.6); WBC 12.4 K/uL (4.0-11.0)
[2017-06-06 05:44] LABS: PLATELET COUNT 180 K/uL (150-450)
[2017-06-06 05:51] LABS: ALBUMIN 2.4 gm/dL (3.5-5.0); ALK PHOS 49 IU/L (33-138); ALT 24 IU/L (12-78); ANION GAP 16.9 (10.0-19.0); AST 24 IU/L (10-40); BLOOD UREA NITROGEN 17 mg/dL (6-24); CALCIUM 8.4 mg/dL (8.5-10.5); CHLORIDE 102 mMol/L (96-110); CREATININE 0.6 mg/dL (0.6-1.3); ESTIMATED GFR (MDRD EQUATION) > 60; POTASSIUM 3.9 mMol/L (3.7-5.1); SODIUM 132 mMol/L (135-145); TOTAL BILIRUBIN 0.7 mg/dL (0.0-1.5)
[2017-06-06 05:55] LABS: CO2 17 mMol/L (22-32)
--- NOTE | 2017-06-06 08:28 | NUR ---
A - NUTRITION F/U. A/O X 1. ON RA. NA+ 132, GLU 150, BUN/PRECISION LENS TECHNICIAN 17/0.6, ALB 2.4, WBC 12.4. DIET: PUREE, PT REFUSED LAST NOC. ENSURE BID W/ BF AND DINNER. D - AT RISK W/ INADEQUATE ORAL INTAKE R/T DECREASED LOC AEB SHIFT SUMMARY AND INTAKE RECORD. I - GOAL: ALTERNATE FEEDING ROUTE. M/E - ANTICIPATE PT WILL NOT BE ABLE TO MEET NEEDS ORALLY. REC OSMOLITE 1.5 AT GOAL RATE OF 50 ML/HR = 1800 KCALS, 75 GM PROTEIN, 914 ML FREE H20. WILL RELAY RECS TO RN AT ROUNDS AND NOTE IN CHART. F/U IN 2-4 DAYS.
--- NOTE | 2017-06-06 10:26 | NUR ---
Called and gave update to Jerilyn at [facility] where I had started referral earlier in week. They are hoping pt will be appropriate for SNF when ready for discharge as they would love to have him as his is with them right now. Will see how he progresses and if he will be appropriate for SNF or if will need something else. Will keep them updated.
--- NOTE | 2017-06-06 16:43 | NUR ---
Significant Event: Patient is oriented to person for all assessments. Patient was oriented to person/place for 2 assessments. Pupils have been equal and reactive. Follows commands with RUE and RLE, withdraws in LUE and LLE. Patient has an ICP/Ventric. Ventric is open continously, except when getting hourly ICP reading and to drain ventric. Ventric had 52ml out. SBP have been low 100's-160's, MAP's 80's-90's. CPP have been 74-110. HR have been 69-70's. Patient is on RA with o2 sats mid to upper 90's. Lung sounds are clear and diminished. Boswell was removed at 0905. Has voided once since boswell out. Follow up:
--- NOTE | 2017-06-07 04:26 | NUR ---
Significant event: Patient alert but disoriented to place. Has mild halluciantions duirng the night. 87ml out of ventric, slightly blood tinged. ICP 1-10. BP 120-140s. Pulses 65-72. Can follow commands on right side. Does not follow commands on left side. Will withdraw on RLE to minimal stimulation and RUE to painful nailbed stimulation. Has full sensation in all extremeties with no numbness or tingling. Drowsy at times but easy to arouse. Edema on left side. IV fluids switched from left side to right side IV. Patient had 4 incontinent voids during shift. Straight cathed x1 for 350ml. Follow up:
[2017-06-07 04:39] LABS: ALBUMIN 2.3 gm/dL (3.5-5.0); ALK PHOS 47 IU/L (33-138); ALT 24 IU/L (12-78); AST 28 IU/L (10-40); BLOOD UREA NITROGEN 18 mg/dL (6-24); CALCIUM 7.8 mg/dL (8.5-10.5); CHLORIDE 102 mMol/L (96-110); CO2 21 mMol/L (22-32); CREATININE 0.6 mg/dL (0.6-1.3); ESTIMATED GFR (MDRD EQUATION) > 60; SODIUM 132 mMol/L (135-145); TOTAL BILIRUBIN 0.8 mg/dL (0.0-1.5); TOTAL PROTEIN 5.5 g/dL (6.0-8.4)
--- NOTE | 2017-06-07 16:39 | NUR ---
SIGNIFICANT EVENT: PATIENT ALERT TO VOICE. PUPILS EQUAL AND REACTIVE. ORIENTED TO PERSON, DISORIENTED TO TIME AND PLACE. MAKES FORGETFUL AND CONFUSED COMMENTS. VISUAL HALLUCINATIONS NOTED. SPEECH IS SLURRED. L) FACIAL DROOPING NOTED. ICP/VENTRIC INTACT, NO DRAINAGE AROUND SITE. VENTRIC OPEN AT ALL TIMES PER MD ORDER. 2-20 ML OF BLOOD TINGED CSF DRAINED PER HOUR. PATIENT FOLLOWS COMMANDS, PURPOSEFUL, SPONT MOVMENTS IN R) UPPER AND R) LOWER EXTREMITIES. PATIENT WITHDRAWS TO PAIN IN L) UPPER AND L) LOWER EXTREMITIES. DOES NOT FOLLOW COMMANDS IN L) UPPER OR L) LOWER EXTREMITIES. SOME SPONT MOVEMENTS NOTED IN L) LOWER EXTREMITIES. PATIENT IN PACED RHYTHM, HR 70S. PULSES PALPABLE THROUGHOUT. BP STABLE, SBP 140-150S, MAP>65. CPP 60-90S. EDEMA PRESENT. AFEBRILE. PATIENT HAS BEEN ON ROOM AIR, SATS MID TO UPPER 90S. BOWEL SOUNDS PRESENT, 1 BM TODAY. 3 INCONT VOIDS, BLADDER SCANNED PER MD ORDER 790 ML OF URINE, BOYCE RE-INSERTED PER MD ORDER. NO NEW SKIN ISSUES. REPOSITIONED EVERY 2 HOURS. UP IN CHAIR X1 SO FAR. BATH COMPLETED. 2 PIV, SALINE LOCKED. FOLLOW UP: CONT. TO MONITOR
[2017-06-07 22:03] LABS: BILIRUBIN URINE NEGATIVE (NEGATIVE); BLOOD URINE 25 /UL (NEGATIVE); COLOR URINE STRAW (YELLOW); GLUCOSE URINE NEGATIVE (NEGATIVE); KETONE URINE 5 mg/dL (NEGATIVE); LEUKOCYTES URINE 25 /UL (NEGATIVE); NITRITE URINE NEGATIVE (NEGATIVE); PROTEIN URINE NEGATIVE (NEGATIVE); TURBIDITY URINE CLEAR (CLEAR); UROBILINOGEN URINE NORMAL (NORMAL)
[2017-06-07 22:28] LABS: EPITHELIAL URINE NEGATIVE #/HPF (NEGATIVE); RBC URINE RARE #/HPF (NEGATIVE)
[2017-06-07 22:29] LABS: BACTERIA URINE FEW (NEGATIVE)
[2017-06-07 22:31] LABS: HEMATOCRIT 33.9 % (33.0-50.0); HEMOGLOBIN 11.7 g/dL (11.0-16.0); MCH 28.8 pg (27.0-34.0); MCHC 34.5 gm/dL (32.0-36.5); MCV 83.5 fl (83.0-98.0); MPV 11.7 fl (9.4-12.4); PLATELET COUNT 164 K/uL (150-450); RBC 4.06 M/uL (3.50-5.50); RDW-CV 14.8 % (11.9-14.6); WBC 7.5 K/uL (4.0-11.0)
[2017-06-07 22:57] LABS: ABSOLUTE NEUTROPHIL CT (ANC) 5.9 K/uL (1.4-9.0); LYMPHOCYTE # 0.9 K/uL (0.8-4.0); LYMPHOCYTE % 12 %; MONOCYTE # 0.5 K/uL (0.0-1.0); SEGMENTED NEUTROPHIL # 5.9 K/uL (1.4-9.0); SEGMENTED NEUTROPHIL % 79 %
--- NOTE | 2017-06-08 04:46 | NUR ---
SIGNIFICANT EVENT: PT WAS VERY DROWSY AT BEGINNING OF SHIFT, AND BECAME NONVERBAL AT 2100 SO PATIENT WAS TAKEN STAT TO CT SCAN OF HEAD. CT WAS UNCHANGED, BLOOD AND URINE CULTURES DRAWN AND VANCO/ZOSYN STARTED. PT WOKE UP SHORTLY AFTER AND HAS RESPONDED VERBALLY THROUGHOUT SHIFT SINCE THIS TIME, BUT DOES NOT OPEN EYES. FOLLOW UP:
[2017-06-08 05:28] LABS: BASOPHIL % 0.1 %; EOSINOPHIL # 0.1 K/uL (0.0-0.5); EOSINOPHIL % 1.3 %; HEMATOCRIT 32.8 % (33.0-50.0); HEMOGLOBIN 11.1 g/dL (11.0-16.0); IMMATURE GRANULOCYTE # 0.1 K/uL (0.0-0.3); IMMATURE GRANULOCYTE % 0.7 %; LYMPHOCYTE % 13.7 %; MCH 28.3 pg (27.0-34.0); MCHC 33.8 gm/dL (32.0-36.5); MCV 83.7 fl (83.0-98.0); MONOCYTE # 0.6 K/uL (0.0-1.0); NEUTROPHIL # (ANC) 5.8 K/uL (1.4-9.0); NEUTROPHIL % 76.2 %; NRBC % 0 /100WBC (0-0.00); PLATELET COUNT 170 K/uL (150-450); RBC 3.92 M/uL (3.50-5.50); WBC 7.6 K/uL (4.0-11.0)
[2017-06-08 05:44] LABS: ANION GAP 11.2 (10.0-19.0); BLOOD UREA NITROGEN 13 mg/dL (6-24); CHLORIDE 94 mMol/L (96-110); CO2 27 mMol/L (22-32); CREATININE 0.6 mg/dL (0.6-1.3); ESTIMATED GFR (MDRD EQUATION) > 60; POTASSIUM 4.2 mMol/L (3.7-5.1); SODIUM 128 mMol/L (135-145)
--- NOTE | 2017-06-08 07:59 | NUR ---
A - NUTRITION F/U. A/O X 1. NA+ 128, GLU 166, BUN/BIOLOGY INTERNSHIP 13/0.6. PT W/ 1+ EDEMA T/O. DIET: PUREE W/ ENSURE BID AND MAGIC CUP BIB. PT TAKING SIPS AND BITES. D - AT RISK W/ INADEQUATE ORAL INTAKE R/T DECREASED APPETITE AEB INTAKE RECORD. I - GOAL: 25% OR BETTER INTAKE BY NEXT REVIEW. M/E - 1) PT NOT ABLE TO MEET NEEDS ORALLY. REC DOBHOFF PLACEMENT W/ TF OSMOLITE 1.5 TO RUN AT GOAL OF 50 ML/HR. 2) F/U IN 2-4 DAYS.
--- NOTE | 2017-06-08 19:00 | NUR ---
Significant Event:Patient has intermittent periods of alertness and drowsiness. Will always answers questions but need constant stimulation at times to keep awake. Oriented to person consistently. Ventric and ICP intact. Keeping ventric open at all times. Drained a total of 103ml CSF this shift. ICP (-3)to 1. CPP 60-70's. Remains in paced Rhtym HR upper 60-70's. Mannitol 50gram IV given x1. Started 0.1mg florinef today. Remains on RA with spo2>95%.Lungs ascultated clear/clear-diminished. Pureed diet, thin liquids, ate better today. Hypoactive bowel sounds. XLg BM this shift x1. Continue with q8h accucheck, treatedx1 with 10units insulin. UP to chair with liftx2. LUE more edematous, venous duplex ultrasound done today. Started 3% for NA of 128 this am. Follow up:Recheck Na level at 1999. Continue with current plan of care.
[2017-06-09 02:57] LABS: ANION GAP 10.7 (10.0-19.0); BLOOD UREA NITROGEN 15 mg/dL (6-24); CALCIUM 7.8 mg/dL (8.5-10.5); CHLORIDE 98 mMol/L (96-110); CO2 27 mMol/L (22-32); CREATININE 0.6 mg/dL (0.6-1.3); ESTIMATED GFR (MDRD EQUATION) > 60; POTASSIUM 3.7 mMol/L (3.7-5.1); SODIUM 132 mMol/L (135-145)
--- NOTE | 2017-06-09 05:20 | NUR ---
patient is sleepy/lethargic but easily awake will follow simple commands moves both extremities on rt side,withdraw on all extremities,start to follow commands on the lt leg,can wiggle and slightly bed the leg,pupils are 3mm rounded equal and react to light,clear upper lungs sound diminished on the bases,on room air,rr=18,f3bud=51,abd is soft small bowel movement. FOLLOW UP:continue to monitor patient's neuro and hemodynamic status closely.
--- NOTE | 2017-06-09 08:25 | NUR ---
ORDER FOR CALORIE COUNTS NOTED. DANIEL COUNTS NO LONGER PERFORMED. WILL CONT TO ASSESS INTAKE THROUGH INTAKE RECORD AND INTERVIEWS WITH FAMILY AND STAFF.
--- NOTE | 2017-06-09 16:53 | NUR ---
Significant Event: Episodes of intermittent drowsiness, during this period he is unable to follow much of any commands unless using constant painful stimuli, will open eyes to pain and occasionally squeeze with RUE and wiggle toes to RLE. When awake and having less drowsiness, he opens eyes to voice, follows commands well in both lower extremities and is able to wiggle toes. Able to state first and last name, unsure of month/year, states he is in a hospital, unsure of specific location. RUE hand grasp present. LUE unable to move, withdraws to painful stimuli by inward flexion. L) visual neglect, L) facial droop, mumbling and slurred speech present, NIHSS 23. Ventriculostomy L) frontal lobe open at all times, 60mL out this shift, bright pink to tea-colored CSF. ICP has remained < 9 throughout shift. SBP 100-140's, HR 60-90's, Paced demand only, highest temp this AM 100.9, has since been 98.4 L.S. clear and diminished in lower lobes on RA. B.S. active, last BM 06/09. Brown intact draining light mckinley urine. Ate 75% of lunch, too drowsy for AM intake. Accuchecks Q6Hrs. Full Lift. Follow up: hourly neuro checks, keep ventric open at all times, decreased 3% Hypertonic Saline to R) AC now running at 15mL/hr. L) forearm infusing intermittent Atbx.
--- NOTE | 2017-06-10 04:47 | NUR ---
Significant Event: Drowsy at times, but awakens to minimal stimuli and is talkative. Slow and mumbled speech. Oriented to self at all times. Oriented to place at times. Spontaneous movement in lower extremities and RUE. Follows commands in RUE and RLE. Withdraws x4 extremities. NIHSS 21. Ventric drained 50 ml blood tinged CSF. VSS. RA. Lungs clear and dim. Brown had good UOP. Good appetite and good oral intake. BM smear. 3% running at 15ml/hr. Tylenol 1000mg given x2 for L) hip pain. Follow up: Continue
[2017-06-10 05:36] LABS: ANION GAP 11.4 (10.0-19.0); BLOOD UREA NITROGEN 19 mg/dL (6-24); CALCIUM 7.7 mg/dL (8.5-10.5); CHLORIDE 102 mMol/L (96-110); CO2 24 mMol/L (22-32); CREATININE 0.5 mg/dL (0.6-1.3); ESTIMATED GFR (MDRD EQUATION) > 60; POTASSIUM 3.4 mMol/L (3.7-5.1); SODIUM 134 mMol/L (135-145)
--- NOTE | 2017-06-10 10:54 | NUR ---
A - NUTRITION F/U. A/O X 2. PT W/ 3+ EDEMA TO L) ARM. NA+ 134, K+ 3.4, GLU 161, BUN/MARKETING COMMUNICATIONS SPECIALIST 19/0.5. DIET: PUREE W/ ENSURE BID AND MAGIC CUP BID. INTAKE IMPROVING, AVERAGE ORAL INTAKE 55%. ATE WELL AT BF PER RN. MAY NEED SOUND EFFECTS MANAGER SHUNT. CBW OF 148# IS UP 9# FROM ADMISSION. D - AT RISK W/ INADEQUATE ORAL INTAKE R/T DECREASED LOC AND APPETITE AEB INTAKE RECORD. I - GOAL: 50-75% INTAKE BY DISMISSAL. M/E - WILL CONT TO MONITOR INTAKE AND WT AND ASSIST NEEDED. F/U IN 3-5 DAYS.
--- NOTE | 2017-06-10 12:26 | NUR ---
Talked with patient daughter at bedside. Let her know I will keep [facility] updated, still hoping pt will get to go there for skilled so he can be with his who is there. Will continue to follow.
--- NOTE | 2017-06-10 16:32 | NUR ---
Significant Event: Alert to self, occasionally alert to location and month. Opens eyes to voice, pupils 3mm brisk. Dullness present to LLE. Moves spontaneously and to commands. LUE withdraws to painful stimuli. LLE moves spontaneously and to command. R) sided extremities move spontaneously and to command. L) facial droop, L) visual neglect. Slightly slurred speech. Ventric site C/D/I, slight shadow drainage present on dressing, Dr. Vides closed ventric at 1330, highest ICP since was 11. No complaints of headache. Complaints of occasional posterior chronic neck pain relieved by Tylenol last given at 1620 and Roxicodone at 1110. To keep ICP <20. SBP 100-150's, to keep SBP <150, gave Labetalol x 1 and Hydralazine x 1 with best results. HR 60-70's with occasional pacer spikes. L.S. clear and diminished in lower lobes, on RA, order to wear O2 at noc or while sleeping to keep sats >92%. B.S. active, one moderate stool this shift. Brown intact draining mckinley urine. R) upper arm triple lumen placed this afternoon, infusing Hypertonic Saline at 15mL/hr with intermittent Zosyn/Vancomycin. Pureed diet, thin liquids, takes pills whole with water/applesause; 1:1 feeder. Full lift for transfers. Follow up: Monitor LOC and ICP, notify MD of any changes.
[2017-06-11 05:00] LABS: ANION GAP 7.7 (10.0-19.0); BLOOD UREA NITROGEN 15 mg/dL (6-24); CHLORIDE 102 mMol/L (96-110); CO2 28 mMol/L (22-32); CREATININE 0.5 mg/dL (0.6-1.3); ESTIMATED GFR (MDRD EQUATION) > 60; POTASSIUM 3.7 mMol/L (3.7-5.1); SODIUM 134 mMol/L (135-145)
--- NOTE | 2017-06-11 06:51 | NUR ---
Significant Event: Pt is alert. Disoriented to time. Pupils are equal and reactive. Ventric was reopened this shift at 10 cm above water due to increased ICP's. Pupils are equal and reactive. Moves the R) extremities to command. L) upper extremity is flacid. L) lower extrities has some small spontaneous movements but no commands. SBP's to be kept lower than 150, PRN medications given once. PT on RA. Bowel sounds are active, no BM this shift. Brown cath in place with good urine output. R) PICC and [address] Follow up: Continue to monitor neuro status and ventric
--- NOTE | 2017-06-11 12:45 | NUR ---
Called update to geriatric social work professor at [facility]. Pt not ready for dc to them this week but will keep them updated.
--- NOTE | 2017-06-11 16:51 | NUR ---
Patient more awake throughout shift. C/O pain to left hip that is slightly relieved with medication. At times disoriented to time, other times a/o x3. Forgetful. Ventriculostomy continues to be open at all times. HR 70, SBP 100-150s, MAPs 55-120. Afebrile. Hydralizine given x1 for SBP >150. 1400 trandate held for hypotension. Continues on RA with o2 sats in mid 90s. Follow up: continue to control BP, monitoring ICP/Ventric.
--- NOTE | 2017-06-12 05:08 | NUR ---
Significant Event: Pt is alert and oriented x3, but can be forgetful and need reoriented at times. Pupils are equal and reactive. R) extremities spontaneously and to command. L) lower extremity has some small spontaneous movements, and the L) upper extremity is flacid. NIHSS score of 19. Ventric open at all times at 10 cm H2O. PRN blood pressure medication given x2. On RA. Brown cath in place with large urine output. Bowel sounds are active, no BM this shift. R) PICC and [address] Follow up: continue to monitor
[2017-06-12 05:15] LABS: ANION GAP 9.4 (10.0-19.0); BLOOD UREA NITROGEN 14 mg/dL (6-24); CALCIUM 7.7 mg/dL (8.5-10.5); CHLORIDE 97 mMol/L (96-110); CO2 28 mMol/L (22-32); CREATININE 0.5 mg/dL (0.6-1.3); ESTIMATED GFR (MDRD EQUATION) > 60; POTASSIUM 3.4 mMol/L (3.7-5.1); SODIUM 131 mMol/L (135-145)
[2017-06-12 05:20] LABS: BASOPHIL % 0.3 %; EOSINOPHIL # 0.3 K/uL (0.0-0.5); HEMATOCRIT 27.3 % (33.0-50.0); HEMOGLOBIN 9.3 g/dL (11.0-16.0); IMMATURE GRANULOCYTE # 0.1 K/uL (0.0-0.3); IMMATURE GRANULOCYTE % 1.4 %; LYMPHOCYTE # 0.9 K/uL (0.8-4.0); LYMPHOCYTE % 14.4 %; MCHC 34.1 gm/dL (32.0-36.5); MONOCYTE # 0.5 K/uL (0.0-1.0); MONOCYTE % 8.5 %; MPV 10.6 fl (9.4-12.4); NEUTROPHIL # (ANC) 4.5 K/uL (1.4-9.0); NEUTROPHIL % 71.4 %; NRBC % 0 /100WBC (0-0.00); PLATELET COUNT 159 K/uL (150-450); RBC 3.21 M/uL (3.50-5.50); RDW-CV 14.7 % (11.9-14.6); WBC 6.3 K/uL (4.0-11.0)
--- NOTE | 2017-06-12 09:10 | NUR ---
A - NUTRITION F/U. A/O X 3, FORGETFUL. NA+ 131, K+ 3.4, GLU 98, BUN/KNITTING MACHINE MECHANIC 14/0.5. PT W/ 1-2+ BUE AND 1+ LE EDEMA. DIET: PUREE W/ ENSURE BID AND MAGIC CUP BID. AVERAGE INTAKE UP SLIGHTLY TO 65%. D - AT RISK W/ INADEQUATE INTAKE AT TIMES R/T DECREASED APPETITE AEB INTAKE RECORD. I - GOAL: CONT TO AVERAGE > 50% INTAKE. M/E - WILL CONT TO MONITOR PO AND ASSIST NEEDED.
--- NOTE | 2017-06-12 15:49 | NUR ---
PATIENT A/OX3 AT TIMES. DISORIENTED TO TIME, AT TIMES, BUT REORIENTS EASILY. ICP/VENTRIC D/C'D TODAY. CONTINUING TO MONITOR NUERO STATUS Q1HR. AFEBRILE. CONTINUES ON RA WITH O2 SATS MID 90S. FOLLOW UP: CONTINUE TO MONITOR NUERO STATUS, POSSIBLE ARCHITECTURAL ADMINISTRATIVE ASSISTANT SHUNT PLACEMENT IF PATIENT DECLINES.
--- NOTE | 2017-06-12 18:52 | NUR ---
Significant Event: Patient drowsy, will awaken to verbal stimuli. Disoriented to time and/or place, forgetful but will have appropriate conversation once awake. NIHSS 19. Pupils 3.0brisk. Moves right side to command, left lower extremity will move occasionally to command and spontaneously and left upper extremity withdraws. Neurochecks q1hr. Keep SBP <150. On room air. Lung sounds clear. Borwn draining adequate urine. Sutures and nate to head incisions, edges approximated. Right PICC running 3%, also has right AC peripheral. 2A full lift. Follow up: monitor neuro status, will place REPAIRING CALIBRATOR shunt if needed
[2017-06-13 05:39] LABS: ANION GAP 10.5 (10.0-19.0); BLOOD UREA NITROGEN 13 mg/dL (6-24); CALCIUM 7.9 mg/dL (8.5-10.5); CHLORIDE 99 mMol/L (96-110); CO2 27 mMol/L (22-32); CREATININE 0.4 mg/dL (0.6-1.3); ESTIMATED GFR (MDRD EQUATION) > 60; POTASSIUM 3.5 mMol/L (3.7-5.1); SODIUM 133 mMol/L (135-145)
--- NOTE | 2017-06-13 05:54 | NUR ---
Significant Event: ALERT, ORIENTED TO SELF AND SOMETIMES PLACE. STROKE SCALE 20. LEFT UPPER EXTREMITY FLACCID, LEFT LOWER EXTREMITY WEAKNESS. RIGHT UPPER EXTREMITY CONTRACTED, MOVES SPONTANEOUSLY. RIGHT LOWER EXTREMITY WEAKNESS, MOVES SPONTANEOUSLY. FOLLOWS COMMANDS. C/O LEFT UPPER QUADRANT ABDOMINAL PAIN. LAST BM 06/10. BOYCE CATHETER INTACT. FULL LIFT. TYLENOL GIVEN LAST AT 2343X 2TABS. Follow up: CT AND CTA OF ABDOMEN AND SPINE THIS AM. DR. GAVIN CONSULT.
[2017-06-13 06:27] LABS: BASOPHIL % 0.2 %; EOSINOPHIL # 0.2 K/uL (0.0-0.5); EOSINOPHIL % 2.7 %; HEMATOCRIT 28.4 % (33.0-50.0); HEMOGLOBIN 9.6 g/dL (11.0-16.0); IMMATURE GRANULOCYTE # 0.1 K/uL (0.0-0.3); IMMATURE GRANULOCYTE % 1.1 %; LYMPHOCYTE % 15.7 %; MCH 28.7 pg (27.0-34.0); MCHC 33.8 gm/dL (32.0-36.5); MCV 84.8 fl (83.0-98.0); MONOCYTE # 0.6 K/uL (0.0-1.0); MPV 10.4 fl (9.4-12.4); NEUTROPHIL # (ANC) 4.5 K/uL (1.4-9.0); NEUTROPHIL % 71.3 %; NRBC % 0 /100WBC (0-0.00); PLATELET COUNT 179 K/uL (150-450); RBC 3.35 M/uL (3.50-5.50); RDW-CV 14.7 % (11.9-14.6); WBC 6.4 K/uL (4.0-11.0)
[2017-06-13 06:35] LABS: ALBUMIN 2.2 gm/dL (3.5-5.0); ALK PHOS 38 IU/L (33-138); ALT 33 IU/L (12-78); ANION GAP 10.5 (10.0-19.0); AST 27 IU/L (10-40); BLOOD UREA NITROGEN 12 mg/dL (6-24); CALCIUM 7.9 mg/dL (8.5-10.5); CHLORIDE 99 mMol/L (96-110); CO2 27 mMol/L (22-32); CREATININE 0.4 mg/dL (0.6-1.3); POTASSIUM 3.5 mMol/L (3.7-5.1); SODIUM 133 mMol/L (135-145); TOTAL PROTEIN 5.1 g/dL (6.0-8.4)
[2017-06-13 06:47] LABS: TOTAL BILIRUBIN 0.4 mg/dL (0.0-1.5)
[2017-06-13 06:48] LABS: ESTIMATED GFR (MDRD EQUATION) > 60
--- NOTE | 2017-06-13 14:04 | NUR ---
RECEIVED A CALL FROM YUDI FROM RE: PT. PT DOES NOT LIKE THE ENSURE ENLIVE, BUT WAS WILLING TO TRY CIB. HE DOES LIKE THE MAGIC CUPS. 1)WILL D/C ENSURE ENLIVE BID 2)START CIB AT BREAKFAST AND DINNER 3)CONTINUE W/MAGIC CUPS BID
--- NOTE | 2017-06-13 14:09 | NUR ---
Significant Event: VSS. PATIENT ALERT TO SELF, AND BDAY MOST OF THE TIME. DOES KNOW HE IS IN [place] SOME OF THE TIME. FOLLOWS COMMANDS. LEFT ARM WITHDRAWS TO PAIN. DOES VERY SLIGHTLY MOVE TOES TO LEFT FOOT, OTHERWISE WITHDRAWS. RT SIDE MODERATE STRENGTH IN BOTH EXTREMITIES. PUPILS 3MM, BRISK. LEFT FACIAL DROOP NOTED. LUNGS CLEAR AND DIM ON ROOM AIR. RT ARM PICC WITH 3% SALINE INFUSING AT 20MLS/HR. RT A/C IV SALINE LOCKED, BUT CURRENTLY HAS KCL RUNNING. BOYCE DRAINING YELLOW URINE. UP WITH FULL LIFT. PUREED DIET WITH THIN LIQUIDS , TAKES PILLS WELL. C/O PAIN TO ABDOMEN, BACK, HIP AT TIMES. TYLENOL GIVEN X 2 SO FAR TODAY WITH RELIEF NOTED. DID HAVE CT OF ABDOMEN /PELVIS FOR ABDOMINAL PAIN AND TO EVALUATE ANEURYSM HE HAS. CT WAS STABLE, NO NEW ORDERS. CONTINUES ON ACCUCHECKS Q 6HRS. ACCUCHECK THIS AM FOR ME WAS 60. ORANGE JUICE GIVEN WITH RECHECK OF 54 , SO DEXTROSE GIVEN WITH A RECHECK OF 128. PATIENT IS ON LEVEMIR, MAKE SURE HE IS GETTING AN HS SNACK. CONTINUES ON NEUROS/VITALS Q 1 HR. KEEP SBP <150. DR LUDWIG HAS NOT ROUNDED YET. ALARMS ON FOR SAFETY. Follow up: NEURO STATUS. ACCUCHECKS. VITALS. MONITOR PAIN. ASSIST WITH FEEDS.
--- NOTE | 2017-06-14 02:38 | NUR ---
Significant Event: Patient alert to self only this shift. Denies N/T. NIHSS=21 this shift. Aphasic. R)side moves spontaneously and to command. LUE no movement observed, does not withdraw to pain, but patient verbally responds to painful stimuli. LLE withdraws to pain, sometimes will spontaneously bend knee. Room air. BS active, no bm this shift. Brown D/C'd this shift. Incontinent of urine, no issues voiding. C/O pain to back and arms with minimal movement. Tylenol given last at 2130. Keshia last given at 0120. Follow up: Continue to monitor LOC.
[2017-06-14 04:58] LABS: ANION GAP 10.7 (10.0-19.0); CREATININE 0.5 mg/dL (0.6-1.3); POTASSIUM 3.7 mMol/L (3.7-5.1)
--- NOTE | 2017-06-14 13:41 | NUR ---
A - NUTRITION F/U. A/O X 1, MORE DROWSY TODAY. NA+ 132, GLU 95, BUN/MATRIX WORKER 13/0.5, ALB 2.2. DIET PUREE W/ CIB AT BF, MAGIC CUP AT LUNCH, ENSURE CLEAR AT DINNER. INTAKE USUALLY 50-100%. D - AT RISK W/ INADEQUATE INTAKE AT TIMES R/T LOC, DECREASED APPETITE AEB INTAKE RECORD. I - GOAL: CONTINUED 50-100% INTAKE. M/E - CONT TO ENCOURAGE MEAL AND SUPPLEMENT INTAKE. F/U IN 3-5 DAYS.
--- NOTE | 2017-06-14 18:19 | NUR ---
PT IS ALERT TO SELF. PUPILS 3MM/BRISK. R)ARM CONTRACTED. L) FACIAL DROOP. PT IS PACED. KEEP SBP<150. PT IS ON RA, CLEAR AND DIM. PT HAS A TRIPLE LUMEN R)PICC RUNNING 3% NS AT 20ML/HR. PT WAS LETHARGIC AND HYPOTENSIVE DURING SHIFT, DR. LUDWIG NOTIFIED. ORDERED BOYCE TO BE REPLACED AND IV MANNITOL. 16 FR BOYCE PLACED AT 1400 AND IV MANNITOL STARTED. FAMILY TO DECIDE SURGICAL MEASURES.
[2017-06-15 04:05] LABS: ANION GAP 8.4 (10.0-19.0); BLOOD UREA NITROGEN 12 mg/dL (6-24); CHLORIDE 100 mMol/L (96-110); CO2 28 mMol/L (22-32); CREATININE 0.4 mg/dL (0.6-1.3); POTASSIUM 3.4 mMol/L (3.7-5.1); SODIUM 133 mMol/L (135-145)
[2017-06-15 04:10] LABS: BASOPHIL % 0.3 %; EOSINOPHIL # 0.2 K/uL (0.0-0.5); EOSINOPHIL % 2.5 %; HEMATOCRIT 28.6 % (33.0-50.0); HEMOGLOBIN 9.7 g/dL (11.0-16.0); IMMATURE GRANULOCYTE # 0.1 K/uL (0.0-0.3); IMMATURE GRANULOCYTE % 1.1 %; LYMPHOCYTE # 0.9 K/uL (0.8-4.0); LYMPHOCYTE % 14.9 %; MCHC 33.9 gm/dL (32.0-36.5); MCV 85.6 fl (83.0-98.0); MONOCYTE # 0.6 K/uL (0.0-1.0); MONOCYTE % 9.5 %; MPV 9.8 fl (9.4-12.4); NEUTROPHIL # (ANC) 4.5 K/uL (1.4-9.0); NEUTROPHIL % 71.7 %; NRBC % 0 /100WBC (0-0.00); PLATELET COUNT 184 K/uL (150-450); RBC 3.34 M/uL (3.50-5.50); RDW-CV 14.8 % (11.9-14.6); WBC 6.3 K/uL (4.0-11.0)
--- NOTE | 2017-06-15 04:22 | NUR ---
Significant Event:PATIENT A/OX2. DROWSY AT BEGINNING OF SHIFT. AWAKE IN TALKATIVE MIDDLE AND END OF SHIFT. DENIES N/T. MOVES RIGHT ARM AND LEG SPONTANEOUSLY. LEFT ARM AND LEG WITHDRAW TO PAIN. PUPILS 3.0 AND BRISK. MANNITOL GIVEN X2. PICC TO RIGHT UPPER ARM RUNNING 3% AT 20ML/HR. AND INTERMITTENT MANNITOL AND ANTIBIOTICS. BOYCE INTACT DRAINING YELLOW URINE. SBPS IN THE 140S-170S. HEART RATE IN 60S-70S. AFEBRILE. STROKE SCALE 17. FOOT DROP BOOT TO LEFT LEG. UP FULL LIFT. PUREED DIET. 1:1 FEEDER. PAIN TO LEFT HIP TYLENOL AND JONG GIVEN WITH RELIEF NOTED. Follow up:VENTRIC VS. INDUCTION BRAZER SHUNT VS. NO INTERVENTION - FAMILY DISCUSSING TONIGHT AND THEN DISCUSSING WITH DR. LUDWIG TODAY.
--- NOTE | 2017-06-15 17:54 | NUR ---
Significant Event: a/o to person and place. confused conversationally. NIHSS=16. No movement to left upper extremity and slight movement to left lower extremity. voice is soft and muffled at times. pain to head/right hip/ generalized. tele- NSR. boswell cath. Tubigrip and edema glove to left upper extremity. PICC to right upper extremity with 3% infusing at 20ml/hr. Full lift with transfers. Pureed diet with thin liquids. One time dose of PRN hyrdralazine administered for SBP greater than 180. call [facility] for htn Manitol Q 8 hours. accuchecks Q 6 hours.
[2017-06-16 03:10] LABS: ALBUMIN 2.4 gm/dL (3.5-5.0); ALK PHOS 46 IU/L (33-138); ALT 35 IU/L (12-78); ANION GAP 10.5 (10.0-19.0); AST 26 IU/L (10-40); BLOOD UREA NITROGEN 11 mg/dL (6-24); CHLORIDE 102 mMol/L (96-110); CO2 27 mMol/L (22-32); CREATININE 0.5 mg/dL (0.6-1.3); POTASSIUM 3.5 mMol/L (3.7-5.1); SODIUM 136 mMol/L (135-145); TOTAL BILIRUBIN 0.5 mg/dL (0.0-1.5); TOTAL PROTEIN 5.4 g/dL (6.0-8.4)
[2017-06-16 03:13] LABS: BASOPHIL % 0.3 %; EOSINOPHIL # 0.1 K/uL (0.0-0.5); EOSINOPHIL % 1.6 %; HEMATOCRIT 29.3 % (33.0-50.0); HEMOGLOBIN 9.8 g/dL (11.0-16.0); IMMATURE GRANULOCYTE # 0.1 K/uL (0.0-0.3); IMMATURE GRANULOCYTE % 1.3 %; LYMPHOCYTE # 0.7 K/uL (0.8-4.0); LYMPHOCYTE % 10.2 %; MCH 28.7 pg (27.0-34.0); MCHC 33.4 gm/dL (32.0-36.5); MCV 85.9 fl (83.0-98.0); MONOCYTE # 0.7 K/uL (0.0-1.0); MONOCYTE % 10.3 %; MPV 9.4 fl (9.4-12.4); NEUTROPHIL # (ANC) 5.4 K/uL (1.4-9.0); NEUTROPHIL % 76.3 %; NRBC % 0 /100WBC (0-0.00); PLATELET COUNT 170 K/uL (150-450); RBC 3.41 M/uL (3.50-5.50); WBC 7.1 K/uL (4.0-11.0)
--- NOTE | 2017-06-16 04:07 | NUR ---
Significant Event: PATIENT ALERT TO SELF. VERY DROWSY AT BEGINNING. OF SHIFT. WOULD OPEN EYES TO VERBAL AND PAINFUL STIMULI. COULD NOT ANSWER ANY QUESTIONS EXCEPT NAME. BY MIDDLE OF SHIFT PATIENT WAS MORE AWAKE, OPENED EYES SPONTANEOUSLY. ABLE TO ANSWER YES/ NO QUESTIONS AND OCCASIONALLY SAY A COUPLE PHRASES. PUPILS 3.0 AND BRISK. LEFT UPPER AND LOWER EXTREMITY WITHDRAW TO PAINFUL STIMULI. RIGHT UPPER AND LOWER EXTREMITY MOVE SPONTANEOUSLY. STROKE SCALE:20. PACED RHYTHM. MANNITOL Q8. LEVAQUIN INTERMITTENTLY. 3% SODIUM AT 20ML/HR. LUNGS CLEAR ON ROOM AIR. BOYCE IN PLACE DRAINING YELLOW URINE. TUBIGRIP TO LEFT UPPER ARM. RIGHT UPPER ARM PICC. NO COMPLAINTS OF PAIN. UP FULL ILFT. PUREED DIET. 1:1 FEEDER. Q6 HOUR ACCUCHECK. Follow up: SNF NEXT WEEK
--- NOTE | 2017-06-16 13:57 | NUR ---
Significant Event: oriented to name and date of . Not oriented to month or age. alert around 0730 and 1330. drowsy at times to the point he will wake/ open eyes to verbal stimuli but then falls right back asleep. NIHSS=21. No movement to left upper extremity and little movement to left lower extremity. Right upper extremity is stiff, moves with pain. PRN roxicodone for pain management. Patient's daughter states he has chronic back and left hip pain. Tele- NSR with PVC. Edema glove and tubigrip to left upper extremity removed with trace edema. Patient's daughter okay with leaving it off and monitoring for need. accuchecks Q 6 hours. Pureed diet/thin liquids. Takes meds whole in pudding/applesauce. Brown cath patent. Triple lumen PICC to right upper arm with 3% saline infusing at 20ml/hr. Mannitol Q 8 hours. Full lift with transfers. Sutures/nate to head from old ventric site. Discharge plan- SNF placement when ready.
[2017-06-17 03:37] LABS: ANION GAP 10.5 (10.0-19.0); BLOOD UREA NITROGEN 13 mg/dL (6-24); CALCIUM 8.1 mg/dL (8.5-10.5); CHLORIDE 104 mMol/L (96-110); CO2 26 mMol/L (22-32); CREATININE 0.5 mg/dL (0.6-1.3); POTASSIUM 3.5 mMol/L (3.7-5.1); SODIUM 137 mMol/L (135-145)
--- NOTE | 2017-06-17 04:13 | NUR ---
Significant Event: Alert to self. Drowsy at beginning of shift; more awake from midnight on. Left upper extremity no movement. Left lower extremity withdraw to pain. Moves right arm and leg spontaneously and to command. Pupils 3.0 and brisk. Stroke Scale 20. Mannitol Q8. Low grade fever with highest temp 99.6. SBP in 120s-140s. Heart rate in 80s-90s. PICC to right upper arm running 3% sodium at 20ml/hr. Intermittent IV levaquin - last dose 06/16 2100. Brown intact draining yellow urine. Pureed diet - 1:1 feeder. Up Full lift. Q6 accuchecks. Pain to left shoulder, hip, and right wrist - morphine, jp and aspercreme given. Pain increased as shift went on. Minimal relief noted. Follow up: CT this am. After CT options will be discussed - REGIONAL DIRECTOR OF FINANCE shunt, ventric or SNF.
--- NOTE | 2017-06-17 14:11 | NUR ---
Significant Event: Patient alert to name and . Disoriented to time and palce. Drowsy at times. follows commands with repititive cueing. Left side flaccid and LE withdraws to pain UE does not withdraw. Right side moves spontaneously. R) hand/arm contracted from aprevious injury. NIHSS 20. PERRLA. Confused at times. VSS. 1+ generalized edema. Edema glove to left hand. Elevated as well. Room air with sats in the mid 90s. LS clear and diminished. Brown. BS active X4. Accuchecks Q6H with SSI. Covergae given this shift. Pureed diet. 1:1 feeder. Pills crushed in applesauce. Bottom slightly reddened. Blanchable. Full lift. Sat at bedside with therapy this shift. Did not tolerate all that well. LOREE PICC. 3% saline and intermittent Mannitol running. Roxicodone given Q4H for all over pain. Family at bedside. Pleasant and cooperative with cares. Follow up: Plan?
--- NOTE | 2017-06-17 16:59 | NUR ---
Talked with patient and daughter about dc planning. Daughter asks about pt going to [facility] for care. Explained that [place] sent pt here for higher level of care so don't believe they would take him back acute care, and they do not have swingbed or skilled care at [facility]. Explained all skilled care is done at the nursing homes in [place], it is the same in [place]. Explained we have an inpatient rehab unit here at [facility], but have to be able to tolerate 3 hours of therapy a day, she doesn't think her dad could do that. Discussed we have started referral to [facility], and daughter says that is where she wants her dad to go when ready for that, her mom is there. Will follow and assist with dc planning. Gave update to Jerilyn at [facility] today.
--- NOTE | 2017-06-18 02:12 | NUR ---
Significant Event: Oriented to person. Left lower extremity has little movement and no movement to left arm. Follows some commands to right side. Unable to assess for numbness/tingling due to cognitive status. NIHSS 20. Hypertensive and receives Mannitol q8h. Triple lumen R)PICC patent with blood return. Full lift for transfers and q6h accuchecks. Generalized pain and roxicodone q4h prn. Medications crushed in applesauce and pureed diet with 1:1 assistance. Family at bedside part of the night. Brown catheter patent with yellow urine. Edema glove to left hand. Frequent repositioning. Follow up:
[2017-06-18 04:40] LABS: ANION GAP 8.6 (10.0-19.0); BLOOD UREA NITROGEN 15 mg/dL (6-24); CALCIUM 8.3 mg/dL (8.5-10.5); CHLORIDE 106 mMol/L (96-110); CO2 28 mMol/L (22-32); CREATININE 0.5 mg/dL (0.6-1.3); POTASSIUM 3.6 mMol/L (3.7-5.1); SODIUM 139 mMol/L (135-145)
--- NOTE | 2017-06-18 11:27 | NUR ---
A-NUTRITION F/U 1+ GENERALIZED EDEMA; WEARS EDEMA GLOVE TO L)HAND. ADMIT WT (BED SCALE): 63.2 KG. CBW (BED SCALE): 71.2 KG. PT HAS HAD A 8 KG WT INCREASE SINCE ADMIT??? LABS: NA 139, K+ 3.6, GLU 65, BUN 15, MIDDLE SCHOOL DIRECTOR 0.5, ALB 2.4 DIET RX: PUREE W/CIB AT [facility]K, MAGIC CUP AT LUNCH AND HS SNACK, AND ENSURE CLEAR AT DINNER. PO INTAKE SIPS/BITES-25% EST NUTR NEED: [id number] KCALS AND 75 GM PROTEIN D-AT NUTRITION RISK W/INADEQUATE ORAL INTAKE R/T ALTERED LOC, DIFF. SWALLOWING AEB INTAKE RECORDS. I-1)PT IS UNABLE TO MEET NUTR. NEEDS W/PO INTAKE AND WOULD BENEFIT FROM ENTERAL FEEDINGS. IF DESIRED, PLEASE CONSULT. 2)CONTINUE CURRENT SUPPLMENTS M/E-GOAL: PO INTAKE >/=50% BY DISCHARGE 1)F/U PO INTAKE, SUPPLMENT, WT, AND POC IN 3-5 DAYS 2)ASSIST NEEDED
[2017-06-18 15:41] LABS: BILIRUBIN URINE NEGATIVE (NEGATIVE); BLOOD URINE 50 /UL (NEGATIVE); COLOR URINE YELLOW (YELLOW); GLUCOSE URINE NEGATIVE (NEGATIVE); KETONE URINE NEGATIVE (NEGATIVE); LEUKOCYTES URINE NEGATIVE /UL (NEGATIVE); NITRITE URINE NEGATIVE (NEGATIVE); PROTEIN URINE 30 mg/dL (NEGATIVE); SPEC GRAVITY URINE 1.005 (1.003-1.035); TURBIDITY URINE CLEAR (CLEAR); UROBILINOGEN URINE NORMAL (NORMAL)
[2017-06-18 15:48] LABS: AMORPHOUS URINE 1+ (NEGATIVE); BACTERIA URINE RARE (NEGATIVE); EPITHELIAL URINE 0-2 #/HPF (NEGATIVE); RBC URINE 0-2 #/HPF (NEGATIVE)
--- NOTE | 2017-06-18 17:03 | NUR ---
Significant Event: Patient alert to self only. Pupils 3mm, brisk. Follows commands inconsistently. No movement noted on L) side. Moves R) side spontaneously. Having visual hallucinations at times. Patient lethargic most of shift, notified. Temp was 101.1 this shift. Blood cultures, urine culture done. Zosyn started. Pacmaker present. VSS, on room air. Brown patent and draining yellow urine. Pureed diet with thin liquids, 1:1 feeder. Takes pills crushed in applesauce. Roxicodone given for pain. R) PICC, saline locked. Getting mannitol q 8 hours IV per MD order. Follow up: ICU status.
[2017-06-18 19:10] LABS: BASOPHIL % 0.1 %; EOSINOPHIL % 0.3 %; HEMATOCRIT 25.6 % (33.0-50.0); HEMOGLOBIN 8.2 g/dL (11.0-16.0); IMMATURE GRANULOCYTE # 0.1 K/uL (0.0-0.3); IMMATURE GRANULOCYTE % 0.7 %; LYMPHOCYTE # 0.8 K/uL (0.8-4.0); LYMPHOCYTE % 8.1 %; MCH 28.7 pg (27.0-34.0); MCV 89.5 fl (83.0-98.0); MONOCYTE # 0.8 K/uL (0.0-1.0); MONOCYTE % 7.6 %; MPV 9.9 fl (9.4-12.4); NEUTROPHIL # (ANC) 8.3 K/uL (1.4-9.0); NEUTROPHIL % 83.2 %; NRBC % 0 /100WBC (0-0.00); PLATELET COUNT 162 K/uL (150-450); RBC 2.86 M/uL (3.50-5.50); RDW-CV 15.5 % (11.9-14.6)
[2017-06-19 05:11] LABS: ANION GAP 9.9 (10.0-19.0); CALCIUM 8.3 mg/dL (8.5-10.5); CREATININE 0.6 mg/dL (0.6-1.3); POTASSIUM 3.9 mMol/L (3.7-5.1)
[2017-06-19 05:22] LABS: BASOPHIL % 0.3 %; EOSINOPHIL # 0.1 K/uL (0.0-0.5); EOSINOPHIL % 1.2 %; HEMATOCRIT 23.1 % (33.0-50.0); IMMATURE GRANULOCYTE % 0.6 %; LYMPHOCYTE # 0.7 K/uL (0.8-4.0); LYMPHOCYTE % 10.6 %; MCH 29.1 pg (27.0-34.0); MCHC 32.5 gm/dL (32.0-36.5); MCV 89.5 fl (83.0-98.0); MONOCYTE # 0.4 K/uL (0.0-1.0); MONOCYTE % 6.5 %; MPV 10.2 fl (9.4-12.4); NEUTROPHIL # (ANC) 5.5 K/uL (1.4-9.0); NEUTROPHIL % 80.8 %; NRBC % 0 /100WBC (0-0.00); PLATELET COUNT 155 K/uL (150-450); RBC 2.58 M/uL (3.50-5.50); RDW-CV 15.4 % (11.9-14.6); WBC 6.8 K/uL (4.0-11.0)
[2017-06-19 05:30] LABS: HEMOGLOBIN 7.5 g/dL (11.0-16.0)
--- NOTE | 2017-06-19 07:14 | NUR ---
Significant Event: PATIENT IS ALERT AND ORIENTED TO PERSON-FORGETFUL AT TIMES. DOES FOLLOW COMMANDS WITH CUEING. VSS. PERRLA. AFEBRILE. PACEMAKER. GENERALIZED EDEMA. ROOM AIR. PUREE DIET WITH THIN LIQUIDS- 1:1 FEEDER-PILLS CRUSHED WITH APPLESAUCE. ACCU CHECKS Q6H. 2A FULL LIFT. L) FOOT DROP BOOT. SUTURES AND BRET TO L) TOP OF HEAD-OPEN TO AIR. TRIPLE LUMEN PICC TO THE R) UPPER ARM. Follow up: TURN Q2H AND CONTINUE TO MONITOR.
--- NOTE | 2017-06-19 18:46 | NUR ---
Significant Event: Patient alert to self and time. Knows he's in the hospital but thinks he is in [place]. Pupils 3mm, brisk. Patient much more alert today than previous days. Follows commands. No movement noted to L) side. Moves R) side spontaneously. R) arm contracted from past accident. Joints not nearly as painful/reddened as they were previously. Pacemaker present. VSS, on room air. No temp this shift. Brown patent and draining mckinley urine. Last BM 06/13. Roxicodone given for pain. R) PICC infusing NS with KCl and intermittent antibiotics. Follow up: Pureed diet, thin liquids. 1:1 feeder. Pills crushed in applesauce. AC/HS accucheks.
[2017-06-20 05:14] LABS: ANION GAP 10.2 (10.0-19.0); BLOOD UREA NITROGEN 18 mg/dL (6-24); CALCIUM 7.8 mg/dL (8.5-10.5); CHLORIDE 105 mMol/L (96-110); CO2 28 mMol/L (22-32); CREATININE 0.4 mg/dL (0.6-1.3); POTASSIUM 4.2 mMol/L (3.7-5.1); SODIUM 139 mMol/L (135-145)
--- NOTE | 2017-06-20 07:06 | NUR ---
Significant Event: Patient has been alert and oriented to person/place and person time this shift. Left sided weakness. NIHSS-20. PERRLA. Follows commands with cueing. Paced- Pulses are thready. Edema glove to left hand. Room air. ADA diet- accu checks ACHS-puree diet with thin liquids-crushed meds with applesauce. 2A full lift. Chandler and sutures removed and open to air. R) upper arm PICC line. Brown cath removed-voiding well. Follow up: retirement when ready.
--- NOTE | 2017-06-20 11:23 | NUR ---
Called update of pt condition to Jerilyn at [facility] and faxed recent referral information. Waiting for physician to indicate ready for discharge to SNF. Still on IV antibx.
--- NOTE | 2017-06-20 14:45 | NUR ---
Significant Event: VSS. PATIENT ALERT TO SELF. THINKS HE IS IN [place]. FOLLOWS COMMANDS. LEFT FACIAL DROOP. LEFT UPPER EXTREMITY WITHDRAWS, LEFT LOWER EXTREMITY VERY SLIGHTLY MOVES TOES AFTER MULTIPLE ATTEMPTS. LUNGS CLEAR AND DIM ON ROOM AIR. DID C/O PAIN THIS AM, TYLENOL GIVEN AT 0930 WITH RELIEF NOTED. INCONTINENT OF URINE. UP WITH FULL LIFT. ACCUCHECKS AC/HS. CONTINUES ON IV ANTIBIOTICS. RT ARM PICC WITH FLUIDS RUNNING, CABRERA AND WHITE LUMEN VERY SLUGGISH TODAY BUT BETTER AFTER MULTIPLE FLUSHES AND WAS THEN ABLE TO GET BLOOD RETURN. CRUSH MEDS IN APPLESAUCE/PUDDING. DID OK WITH SMALLER MEDS THAT COULDNT CRUSH. 1:1 FEED. Follow up: ALARMS. NEURO STATUS. PLACEMENT. ACCUCHECKS.
--- NOTE | 2017-06-21 05:05 | NUR ---
Significant Event: Patient is Alert, oriented to self only. When asked where he was he repeatedly states "[place] Talkative but confused. Follows commands to right side et left leg, no commands to LUE. 2+edema to LUE, compression garments on. Foot drop boot to lle. LS clear, O2 >90 on RA> BS x4, ate nearly 100% for dinner, pureed with thins. Incontinent of urine. L) PICC patent, dressing CDI. VSS. Will continue to monitor
[2017-06-21 07:21] LABS: ANION GAP 9.5 (10.0-19.0); BLOOD UREA NITROGEN 13 mg/dL (6-24); CALCIUM 7.9 mg/dL (8.5-10.5); CHLORIDE 104 mMol/L (96-110); CO2 28 mMol/L (22-32); CREATININE 0.5 mg/dL (0.6-1.3); POTASSIUM 3.5 mMol/L (3.7-5.1); SODIUM 138 mMol/L (135-145)
--- NOTE | 2017-06-21 12:53 | NUR ---
Talked with this morning, he was wanting to know when we could get Dale to SNF. I let him know that with him being on Q8 Vanco, no SNF would accept him as that was to frequent for them to work with. I let him know that if we could get his Q8 medication changed to something Q24 we might be able to get Dale to [facility] sooner. was going to talk with the hospitalists () about changing the IV Abx. I also left a note on the front of the chart as well for to make sure that this was addressed. Also phoned over to SNF to talk with Jerilyn, she was out today so I talked with Judy. Judy says that they should be able to do a once a day IV Abxs as long as he had a PICC line and MIKE Gonzalez was fine with this. I let her know we would do some talking with MDs here and then send an update on Saturday. She was fine with this. No other questions, needs or concerns. CM to continue to follow and assist.
--- NOTE | 2017-06-21 13:15 | NUR ---
Significant Event:VSS. Patient alert to self only. Follows commands. Left facial droop. Left upper extremity withdraws only, slight movement of left lower extremity. Rt arm contracted from previous injury. Pupils 3mm, brisk. Lungs clear and dim on room air. Does have generalized pain, Tylenol given this am with relief noted. Picc to Rt arm, flushed sluggish this am but better now and good blood return. Continues on Iv antibiotics. Pureed diet with thin liquids, feeder. Crush meds that are able. Up with full lift. Accuchecks ACHS. Needing to follow up on antibiotics, can we change frequency? Looking at placement, but cant go anywhere with antibiotics q 8hrs. Alarms on for safety. Follow up: Neuro status. Monitor pain. Accuchecks. Incontinence.
--- NOTE | 2017-06-21 14:31 | NUR ---
A - NUTRITION FOLLOW-UP. CONFUSED. 2+ EDEMA LUE. LABS: K+ 3.5 MEDS: LACTINEX, MILD SSI, LEVEMIR DIET: PUREE W/ CIB AT BF, MAGIC CUP AT LUNCH, ENSURE CLEAR AT DINNER. INTAKE IMPROVED. PER SHIFT REPORT, HAD ALMOST 100% OF DINNER 06/20. FAMILY MEMBER PRESENT DURING VISIT. HAD 100% OF BREAKFAST. OBSERVED LUNCH, 100% CONSUMED. APPETITE SEEMS TO BE IMPROVING. 1:1 FEEDER. INTAKE 48% X11 MEALS PER FAMILY MEMBER, PT DOES NOT LIKE MAGIC CUP AND ENSURE CLEAR, TOO SWEET. WILL DRINK CIB SOMETIMES. DISCUSSED PT'S LIKES AND DISLIKES. EST NEEDS: [id number] KCAL, 75 GRAMS PROTEIN, FLUID NEEDS: 1ML/KCAL D - INADEQUATE ORAL INTAKE AT TIMES RELATED TO ALTERED APPETITE EVIDENCED BY PO 48% X11 MEALS. I - DISCONTINUE MAGIC CUP AND ENSURE CLEAR. INCREASE CIB TO 2X/DAY; ADDING ENSURE PUDDING ONCE DAILY. M/E - GOAL: PT WILL BE ABLE TO TOLERATE >50% OF MEALS AND AT LEAST ONE ORAL SUPPLEMENT PER DAY IN 3-5 DAYS.
[2017-06-21 15:53] LABS: HEMATOCRIT 25.7 % (33.0-50.0); HEMOGLOBIN 8.4 g/dL (11.0-16.0)
[2017-06-22 04:52] LABS: ANION GAP 9.3 (10.0-19.0); BLOOD UREA NITROGEN 11 mg/dL (6-24); CALCIUM 8.5 mg/dL (8.5-10.5); CHLORIDE 103 mMol/L (96-110); CO2 30 mMol/L (22-32); CREATININE 0.5 mg/dL (0.6-1.3); POTASSIUM 3.3 mMol/L (3.7-5.1); SODIUM 139 mMol/L (135-145)
[2017-06-22 04:56] LABS: BASOPHIL % 0.4 %; EOSINOPHIL # 0.2 K/uL (0.0-0.5); EOSINOPHIL % 4.4 %; HEMATOCRIT 26.3 % (33.0-50.0); HEMOGLOBIN 8.7 g/dL (11.0-16.0); IMMATURE GRANULOCYTE # 0.1 K/uL (0.0-0.3); IMMATURE GRANULOCYTE % 1.1 %; LYMPHOCYTE % 21.9 %; MCH 28.6 pg (27.0-34.0); MCHC 33.1 gm/dL (32.0-36.5); MCV 86.5 fl (83.0-98.0); MONOCYTE # 0.4 K/uL (0.0-1.0); MONOCYTE % 8.2 %; MPV 10.3 fl (9.4-12.4); NEUTROPHIL # (ANC) 2.9 K/uL (1.4-9.0); NRBC % 0 /100WBC (0-0.00); PLATELET COUNT 194 K/uL (150-450); RBC 3.04 M/uL (3.50-5.50); RDW-CV 14.6 % (11.9-14.6); WBC 4.5 K/uL (4.0-11.0)
--- NOTE | 2017-06-22 04:59 | NUR ---
Significant Event:PATIENT HAS BEEN ALERT AND ORIENTED TO SELF. DOES FOLLOW COMMANDS WITH CUEING. [place]. AFEBRILE. PERRLA. DENIES CHEN, PAIN, OR N/T. NIHSS-23. ROOM AIR. EDEMA. BOWELS ARE ACTIVE-LAST BM 06/19-SUPP GIVEN-NO RESULTS. ACCU CHECKS ACHS-MILD SCALE. PICC LINE IN R) UPPER ARM-SL'D-CAN BE POSITIONAL AT TIMES. PUREE DIET WITH THIN LIQUIDS. TAKES PILLS CRUSHED WITH APPLESAUCE. INCONT OF B/B. Follow up: PATIENTS AND FAMILY WILL BE HERE TODAY.
--- NOTE | 2017-06-22 13:02 | NUR ---
Significant Event: Patient alert to self only. VSS, on room air. Pupils 3mm,brisk. Very slight movement noted in L) side. Moves R) side spontaneously and to command. R) arm contracted from previous accident years ago. Patient having visual hallucinations at times. Does not withdraw to pain in L) arm but states 'ow' with nail bed pressure. Withdraws to pain in L) lower extremity. Patient incontinent of bowels and bladder. Brief on. Old ICP/ventric sites to head, open to air. R) PICC, saline locked. Family at bedside. Follow up: [facility] status.
--- NOTE | 2017-06-22 18:30 | NUR ---
Significant Event: Patient arrived from [facility] at 1445. PICC line to right antecubital. Foot drop boot to left foot. Edema wear and isotoner glove to left upper extremity. Patient to be transferred to [facility] on Saturday. Patient is confused at times, but is oriented to self and is able to state his birthday. Patient is a 1:1 feeder on a pureed diet with thin liquids. Takes pills crushed in applesauce. Patient is a full lift and turn [id number]--freb turned at 1730. Patient given roxicodone around 1500 with relief noted. Patient has had multiple back surgeries and tends to have pain to left hip and down left leg from this. Family has been very instrumental in care, but are currently not here as [facility]. Patient is incontinent of both bowel and bladder--last BM was 06/19, but patient does have a suppository ordered for prn and may just need that. Patient says he feels like he has to go but is then incontinent and has no idea that he went. Last changed at 1730. Follow up: Continue to monitor.
--- NOTE | 2017-06-23 04:25 | NUR ---
SIGNIFICANT EVENT: Pt transferred from [facility] on 06/22/17. Sleepy and confused most of shift, awakes to voice. Q4h VS and neuro checks. 124 to 178 over 77 to 79, other VSS on RA. PICC to R) UA is SL. L) flaccid d/t stroke. Hemetest x3 - only a scant smear this shift. 2 Lg Incont. voids. Sleeve to L) arm for edema. 1:1 feeder. Crush meds in applesauce and follow with water. ACHS accuchecks - HS BG of 233 rec'd 2 units Novolog plus scheduled 5 of levemir. Foot drop boot to L) leg/foot. Extensive heart hx. Pleasant and cooperative with cares.
--- NOTE | 2017-06-23 16:19 | NUR ---
Patient is alert and oriented to self, he is confused. He has been repositioned multiple times today and has been incontinent of bladder almost every time. Has tried to have a BM on the bedpan x2 this shift with no success. He needs hematests x3. Is a 1:1 feeder with a pureed diet and thin liquids. Foot drop boot to L), bilateral pneumatics. ACHS accuchecks with no coverage needed, only levemir given. Meds are crushed in applesauce. Has a triple lumen PICC in R) arm. L) side is flaccid. Not sure of placement plan with him.
--- NOTE | 2017-06-24 03:50 | NUR ---
SIGNIFICANT EVENT: Pt drowsy, confused. Hypertensive - 196 to 204 over 79 to 90, other VSS on RA. L) flaccid. Foot drop boot to L) leg, sleeve to L) arm. PICC to R) UA is SL. ACHS accuchecks with Mild SS - no coverage this shift. BP to R) calf. Pureed regular diet, thin liquids. Q2h turn. Incontinent of urine. Hemetest x3 needed - no stool this shift, dulcolax suppository administered this shift. Pleasant and cooperative with cares.
[2017-06-24 06:06] LABS: ANION GAP 9.5 (10.0-19.0); BLOOD UREA NITROGEN 14 mg/dL (6-24); CALCIUM 8.7 mg/dL (8.5-10.5); CHLORIDE 102 mMol/L (96-110); CO2 30 mMol/L (22-32); CREATININE 0.5 mg/dL (0.6-1.3); POTASSIUM 3.5 mMol/L (3.7-5.1); SODIUM 138 mMol/L (135-145)
[2017-06-24 06:22] LABS: BASOPHIL % 0.5 %; EOSINOPHIL # 0.2 K/uL (0.0-0.5); HEMATOCRIT 29.7 % (33.0-50.0); HEMOGLOBIN 9.5 g/dL (11.0-16.0); IMMATURE GRANULOCYTE # 0.1 K/uL (0.0-0.3); IMMATURE GRANULOCYTE % 1.3 %; LYMPHOCYTE # 1.1 K/uL (0.8-4.0); MCH 27.8 pg (27.0-34.0); MCV 86.8 fl (83.0-98.0); MONOCYTE # 0.5 K/uL (0.0-1.0); MONOCYTE % 8.9 %; MPV 9.8 fl (9.4-12.4); NEUTROPHIL # (ANC) 4.1 K/uL (1.4-9.0); NEUTROPHIL % 68.3 %; NRBC % 0 /100WBC (0-0.00); PLATELET COUNT 235 K/uL (150-450); RBC 3.42 M/uL (3.50-5.50); RDW-CV 14.8 % (11.9-14.6)
--- NOTE | 2017-06-24 09:15 | NUR ---
Patients daughter Karla called #[phone]. Wants to know if patient is getting today before she heads this way. I will do some checking and let her know. She stated her brother Ken was the POA and would like to know this too. 1005 Called patients son Ken. We talked about placements options. He didn't feel like [facility] was appropriate after we discussed. He wished to continue to with [facility]. Also covered how Medicare works in the SNF setting. 1055 Following morning mandy called Karla back and let her know there was no discharge planned for today. 1105 Faxed updated to [facility] and on cover asked if they could accept Saturday or Saturday. Spoke with Saad Santos and patient should be ready to go tomorrow. 1215 Dr Vides called for a progress update. 1220 Called [facility] #[phone], spoke to Jerilyn. They should be able to accept just need to check his financials out and requested a copy of his cards. Faxed these #[phone]. 1445 Called Jerilyn for a final answer. She stated they had 2 CNAs quit and were calling family about coming in to fed in the evenings since he was a 1:1. She will get back to me. Orders on the chart and packet started.
--- NOTE | 2017-06-24 15:34 | NUR ---
PT MOVED TO NO RISK W/ CONSISTENT 75-100% INTAKE. PT IS A FEEDER. WILL CONT CIB SUPPLEMENT AND ENSURE PUDDING TO MAINTAIN NUTRITION STATUS. WILL ASSIST NEEDED.
--- NOTE | 2017-06-24 15:40 | NUR ---
Oriented to self. Cooperative with cares. PICC s/l'd to DANYA w/GBR. Tolerating pureed diet well; 1:1 feeder. Up to BSC x2 today for large BM and scant one. Voids per urinal/incontinent at times. Flacid to L) side. Ft drop boot and and compression sleeve to LUE. VSS, afebrile, on RA. Had episode of nonresponsiveness this a.m. for several minutes when on commode. Pupils nonreactive, not responsive to sternal rub; did respond to pencil on nails. Slowly began to respond physically and verbally and return to baseline. Nadeem PLATING ENGINEER on floor and visited patient. Also notified Dr Vides and received order for [facility].
--- NOTE | 2017-06-25 02:54 | NUR ---
SIGNIFICANT EVENT: Pt sleepy, confused. Hypertensive at 2nd assessment - 146 to 213 over 70 to 97. Other VSS on RA. Q2h turn. Incontinent of bowel and bladder at times. Needs one more hemetest. PICC to R) UA is SL - all 3 ports flush well with good BR. ACHS accucheck with Mild SS insulin. L) arm is flaccid, sleeve on. L) foot drop boot on. Pleasant and cooperative with cares.
--- NOTE | 2017-06-25 09:10 | NUR ---
Spoke with Dr. Metcalf, can set up transport for anytime. 914 Spoke with Sheila at EMS. Lined up for 1100. Updated patient nurse Carola - she told family, charge Nurse Tish and called [facility] #[phone]. [phone] Faxed orders #[phone]. [phone] patients son Zurdo called. Just wanted to see how the ambulance would be billed? I stated we filled out a form stating we felt it was medically needed. But I can not guarantee it will be paid for my Medicare. He voiced understanding and thanked up for the great care.
--- NOTE | 2017-06-25 10:45 | NUR ---
D: PATIENT VITAL SIGNS STABLE, DOES HAVE SOME HYPERTENSION. PATIENT SCHEDULED TO TRANSFER TO [facility] TO FAMILY. 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 LEFT FOOT DROP BOOT ON AND LEFT SLEEVE. PATIENT WAS INITIAL DOSED ON [place] YESTERDAY DUE TO AN EPISODE OF LEFT EYE DEVIATION AND UNRESPONSIVENESS. PATIENT IS ALERT BUT SLEEPY. DOES HAVE SOME MUMBLING WHEN VISITING WITH CHILDREN. TYLENOL GIVEN AT 0830 FOR COMPLAINTS OF HEADACHE. PATIENT IS TRANSFERRED X 2 MAX ASSIST, INCONTINENT OF BLADDER AND STOOL (LAST STOOL 06/24/17). PICC LINE DISCONTINUED AT 1030 TODAY DRESSING CAN BE REMOVED IN 24 HOURS.
== END 2017-06-25 11:20 | DRG 23 ==
LOC: EDSTATUS 15:59 → GMED 15:59 → GMSU 17:16 → GICU 17:16 → GMSU 06-22 14:15
PROVIDERS: Anesthesiology; Internal Medicine; ADMIT Neurological Surgery
DX: I61.5 Nontraumatic intracerebral hemorrhage, intraventricular (principal); G93.6 Cerebral edema; J18.9 Pneumonia, unspecified organism; I11.0 Hypertensive heart disease with heart failure; E11.649 Type 2 diabetes mellitus with hypoglycemia without coma; I50.22 Chronic systolic (congestive) heart failure; G81.94 Hemiplegia, unspecified affecting left nondominant side; I49.5 Sick sinus syndrome; G91.9 Hydrocephalus, unspecified; E87.1 Hypo-osmolality and hyponatremia; N39.0 Urinary tract infection, site not specified; B96.89 Other specified bacterial agents as the cause of diseases classified elsewhere; D64.9 Anemia, unspecified; E03.9 Hypothyroidism, unspecified; E87.6 Hypokalemia; I25.10 Atherosclerotic heart disease of native coronary artery without angina pectoris; K21.9 Gastro-esophageal reflux disease without esophagitis; K27.9 Peptic ulcer, site unspecified, unspecified as acute or chronic, without hemorrhage or perforation; Z95.0 Presence of cardiac pacemaker; Z66 Do not resuscitate
CPT/HCPCS: J0360; J0690; J1644; J1956; J2001; J2270; J2405; J2543; J3010; J3370; J3475; J3480; J7030; J7040; J7050; Q9967

== ENCOUNTER → 2017-06-25 | Outpatient (CLI) | payer MEDICARE, OTHER ==
[~2017-06-25] MED LIST: ASPIRIN (CHILDR81 MG PO; COZAAR50 MG PO; FISH OIL 1,0001 EAC1 PO; GLUCOPHAGE XR500 M1 PO; LANTUS (IN100 UNIT/M SUB-Q; LEVOXYL100 MCG PO; NORCO 5-325 TA1 EACH PO; PRILOSEC20 MG PO; THERA-VITE W/ B1 TAB PO; TYLENOL EXTRA500 MG PO; UNISOM 25 MG25 MG PO; ZOCOR40 MG PO; ZYLOPRIM300 MG PO
== END | disposition disaster alternative care site (69) ==
LOC: GAMB 11:18
DX: I63.9 Cerebral infarction, unspecified (principal); I10 Essential (primary) hypertension; E11.9 Type 2 diabetes mellitus without complications; Z79.84 Long term (current) use of oral hypoglycemic drugs; R41.0 Disorientation, unspecified; Z79.4 Long term (current) use of insulin; Z95.0 Presence of cardiac pacemaker; Z79.82 Long term (current) use of aspirin; Z79.899 Other long term (current) drug therapy; Z88.5 Allergy status to narcotic agent; Z88.8 Allergy status to other drugs, medicaments and biological substances
CPT/HCPCS: A0425; A0428